=== PATIENT | female | born 1955 | race Caucasian/White ===

== ENCOUNTER 2024-04-29 14:00 | Outpatient (RCR) | payer MEDICARE, SELFPAY ==
[2024-04-22 13:41] VITALS: BP 153/94; PULSE 97; RESP 16; TEMP 35.9; BMI 32.4
--- NOTE | 2024-04-22 17:04 | HP.PCM_ITS ---
History of Present Illness Date of Service: 04/22/24 Chief Complaint: Bilateral buttock pressure wounds History of Wound: Nhi Miranda is a 68 y/o female who presents to the wound center today for evaluation and management of bilateral buttock pressure ulcerations as referred by her PCP. She reports she first noticed these wounds >6 weeks ago, she was having pain in the area. She has been following with her PCP who has been having her cover the wounds with foam border dressing, had her get a foam pad/donut for her chair, and advised her to stand more frequently. The wounds have been improving, but progress has been slow. She has been treated a couple times for associated cellulitis, not currently on any antibiotics. She admits she spends a lot of time sitting her her recliner watching TV/News. She does not have any specific mobility limitations, she is ambulatory without the need for any assistive devices. She has never had wounds like this before. She is diabetic but with very good control, last A1c 6.6. She does not smoke. She does not have any autoimmune disease and takes no immunosuppressive medications. She is not on anticoagulation. She reports that she has been standing every 15 minutes at home. She uses the donut all the time on her chair. She does sleep in a bed. [facility] Home Medications ?Medication ?Instructions ?Recorded ?Last Taken ?Type Abilify 2 mg 07/02/14 Unknown Histor y Ambien 07/02/14 Unknown History Amitriptyline HCl 07/02/14 Unknown History Cymbalta 60 mg PO 07/02/14 Unknown Hi story Lexapro 07/02/14 Unknown History Simvastatin 07/02/14 Unknown History aripiprazole 2 mg tablet mg 04/22/24 Unknown History atorvastatin 40 mg tablet mg DAILY 04/22/24 Unknown Hi story calcium 500 mg (as 1 tab PO BID 04/22/24 Unknow n History carbonate)-vitamin D3 5 mcg (200 unit) tablet (Oyster [place] Calcium-Vitamin D3) clonazepam 0.5 mg tablet mg 04/22/24 Unknown History duloxetine 60 mg capsule,delayed mg PO DAILY 04/22/24 Unknown History release ergocalciferol (vitamin D2) 1,250 1,250 mcg PO QWEEK 0 04/22/24 Unknown History mcg (50,000 unit) capsule escitalopram oxalate 20 mg tablet mg DAILY 04/22/24 Un known History fluconazole 150 mg tablet 150 mg PO X1 04/22/24 Unknow n History gabapentin 600 mg tablet mg 04/22/24 Unknown History lansoprazole 30 mg capsule,delayed mg DAILY 04/22/24 U nknown History release levothyroxine 50 mcg tablet mcg DAILY 04/22/24 Unknown History (Synthroid) metformin 500 mg tablet mg 04/22/24 Unknown History tizanidine 2 mg tablet mg 3XD 04/22/24 Unknown Hist ory topiramate 50 mg tablet mg DAILY 04/22/24 Unknown Hi story zolpidem 10 mg tablet mg 04/22/24 Unknown History Allergy/AdvReac Type Severity Reaction Status Date / Time nitrofurantoin Allergy Swelling Verified 04/22/24 13:41 macrocrystalline (From Macrodantin) tetracycline Allergy Swelling Verified 04/22/24 13:41 Social History Smoking Status: Never smoker Vital Signs Vital Signs Vital Signs: 04/22/24 13:41 Temperature 96.7 F L Temperature Source Temporal Pulse Rate 97 Respiratory Rate 16 Blood Pressure 153/94 H Blood Pressure Mean 113 Blood Pressure Source Monitor Blood Pressure Position Sitting Blood Pressure Location Left Arm Oxygen Delivery Method Room Air Weight Weight: 189 lb Body Mass Index (BMI) 32.4 Physical Exam Const alert, oriented x3, no apparent distress and healthy appearing General Appearance: cooperative and comfortable HEENT normocephalic, hearing grossly normal bilaterally, external ears normal and external nose normal Eyes General Eye: normal appearance of both eyes Neck General: normal visual inspection and trachea midline Resp normal respiratory effort Effort and Inspection: able to speak in complete sentences; Negative for respiratory distress, labored, grunting or audible wheezes Cardio regular rate and regular rhythm Extremity no clubbing, cyanosis or edema Skin Wounds: wounds noted Wound Narrative: Healed wound to the L buttock. R buttock with stage 2 pressure ulceration, pink and well-bleeding wound base. There is no surrounding erythema, focal edema, fluctuance, excess warmth. No significant drainage. Neuro oriented x3, moves all extremities and no focal motor deficits Speech: speech normal Psych mental status grossly normal Appearance: grossly normal Attitude: calm and engaged Activity / Motor Behavior: appropriate eye contact Speech: normal speech Debridement Note Debridement Note Wound debrided: R buttock ulceration Laterality: Right Type of Debridement: Excisional debridement Anesthesia Used: 4% Lidocaine Solution Depth: Down to and including healthy tissue (dermis/epidermis) Percentage of wound debrided: 100 Instrument Used: 5mm curette Tissue Removed: slough, crust/scab Severity: Limited To Skin Breakdown Amount of bleeding with debridement: Mild Bleeding Controlled with: Pressure Patient tolerated procedure: Patient tolerated procedure well Post-Debridement Measurements and Additional Note: Post-Debridement Measurements/Treatment MARGIE - Nurse 1 - General Ulcer Assessment Start: 04/22/24 13:34 Freq: Status: Active Protocol: FARA Activity Type Activity Date Activity User E-sign Co-sign Detail Recorded Client Recorded Date Recorded By Document 04/22/24 13:41 KW [id number] 04/22/24 13:55 KW 04/22/24 13:41 MARGIE - Today's Visit Information Type of service Initial Visit Arrival Mode Ambulatory Accompanied by - derek Patient Identification Verified (Name & Yes ) Height and Weight Height 5 ft 4 in Weight 189 lb Weight in Pounds 189.0 lbs Weight Measurement Method Estimated by Patient Body Mass Index (BMI) 32.4 BMI Classification Obese Vital Signs Temperature (97.8 F-99.1 F) 96.7 F L Temperature Source Temporal Pulse Rate (60-100) 97 Pulse Location Monitor Respiratory Rate (12-18) 16 Respiratory rate source Observation Oxygen Delivery Method Room Air Blood Pressure (90/60-120/80) 153/94 H Blood Pressure Mean 113 Source Monitor Position Sitting Blood Pressure Location Left Arm History Since Last Visit- (Skip if this is Patient's initial visit) Left Footwear Regular Shoe Right Footwear Regular Shoe Pain Scale: 0-10 Numeric Is Patient Pain Free? Yes Communication Assessment Preferred language Luxembourgish Dye Colorist Dyer Required No Able to Read Yes Able to Write Yes Communication Tools None Caregiver Communication Skills No Impairment Impairment Right Hearing Abillity Normal Left Hearing Abillity Normal Visual Assistive Devices Glasses Teaching Assessment Preferences Verbal,Written, Demonstration Barriers to Learning None Readiness To Learn Excellent Willingness to Engage in Self Management High Activies Readiness to Engage in Self Management High Activities Anxiety Level Calm Cooperation Cooperative Perception Coherent Interest in Health Problem Asks Questions Education Importance Acknowledges Need Does Patient Smoke tobacco or other No substances Smoking Status Never smoker Is Patient Diabetic Yes Functional Assessment Recent Decline in Ability to Perform Denies Any Declines Culture/Yazidi/Industrial Production Manager Cultural/Yazidi Needs that may affect No Treatment Plan Would you allow our hospital finance associate to No meet you for the purpose of spiritual/ emotional support? Industrial Production Manager to contact place of yazidi No WC - Nurse 1 - General Ulcer Measurement Start: 04/22/24 13:34 Freq: Status: Active Protocol: Activity Type Activity Date Activity User E-sign Co-sign Detail Recorded Client Recorded Date Recorded By Document 04/22/24 13:41 KW [id number] 04/22/24 13:55 KW 04/22/24 13:41 Wound Center Nurse 1 #1 LT BUTTOCK -Current Size (cm) - Length 0.1 -Current Size (cm) - Width 0.1 -Current Size (cm) - Depth 0 -Total Square Cm 0.01 -Date of Last Picture (Recall this 04/22/24 field) -Exudate Amt None Present -Granulation Amt Large (67-100%) -Granulation Quality [place] -Texture (Santa-wound Skin Appearance) Assessed -Moisture (Santa-wound Skin Appearance) Assessed -Color (Santa-wound Skin Appearance) Assessed -Temperature (Santa-wound Skin No Abnormality Appearance) (Pt Warm) -Tenderness on Palpation (Santa-wound No Skin Appearance) -Ulcer Cleansing Rinsed/ Irrigated with Saline -Foul Odor after Cleansing No #2 RT BUTTOCK -Current Size (cm) - Length 1.2 -Current Size (cm) - Width 0.4 -Current Size (cm) - Depth 0.1 -Total Square Cm 0.48 -Date of Last Picture (Recall this 04/22/24 field) -Exudate Amt Small -Exudate Type Serosanguineous -Wound Margin Distinct, Outline Attached -Granulation Amt Large (67-100%) -Granulation Quality [place] -Necrosis Amt Medium (34-66%) -Necrotic Tissue Type Eschar -Texture (Santa-wound Skin Appearance) Assessed -Moisture (Santa-wound Skin Appearance) Assessed -Color (Santa-wound Skin Appearance) Assessed -Temperature (Santa-wound Skin No Abnormality Appearance) (Pt Warm) -Tenderness on Palpation (Santa-wound No Skin Appearance) -Ulcer Cleansing Rinsed/ Irrigated with Saline -Foul Odor after Cleansing No -Anesthetic Used 5% Lidocaine Gel WC - Nurse 2 - General Ulcer CM Notes Start: 04/22/24 13:34 Freq: Status: Active Protocol: Activity Type Activity Date Activity User E-sign Co-sign Detail Recorded Client Recorded Date Recorded By Document 04/22/24 14:10 GM [id number] 04/22/24 14:20 04/22/24 14:10 Wound Center Nurse 2 #1 LT BUTTOCK -Time 14:10 -Correct Patient Yes -Correct Side, Site, Position Yes -Correct Procedure No -Procedure Performed No -Tunneling No -Undermining/Tunneling No -Circular Undermining No -Wound/Ulcer Outcome Healed- Epithelialized -Ulcer Cleansing Not Cleansed -Foul Odor after Cleansing No -Bioengineered Tissue No -Bleeding Controlled with NA #2 RT BUTTOCK -Time 14:10 -Correct Patient Yes -Correct Side, Site, Position Yes -Correct Procedure Yes -Procedure Performed Yes -Type of Procedure Debridement -Clinical Debridement Subcutaneous -Tissue Removed Subcutaneous -Tunneling No -Undermining/Tunneling No -Circular Undermining No -Wound/Ulcer Outcome Not Healed -Ulcer Cleansing Rinsed/ Irrigated with Saline -Foul Odor after Cleansing No -Bioengineered Tissue No -Bleeding Controlled with Pressure -Treatment Response Procedure Tolerated Well -Debridement - Subq, 1st 20sq cm Yes Pain Scale: 0-10 Numeric Is Patient Pain Free? Yes - Nurse 3 - General Ulcer D/C NN Start: 04/22/24 13:34 Freq: Status: Active Protocol: Activity Type Activity Date Activity User E-sign Co-sign Detail Recorded Client Recorded Date Recorded By Document 04/22/24 14:24 [facility] [id number] 04/22/24 14:25 [facility] 04/22/24 14:24 Wound Care Center Nurse 3 #2 RT BUTTOCK -Ulcer Cleansing Rinsed/ Irrigated with Saline -Foul Odor after Cleansing No -Primary Dressing Applied Promogran [place] Matter, Silicone Border Foam 4x4 -Promogran [place] Matter 1 -Silicone Border Foam 4x4 2 Pain Scale: 0-10 Numeric Is Patient Pain Free? Yes WC - Visit Discharge Discharge Condition Stable Ambulatory Status Ambulatory Transportation Private Auto Accompanied by Charges/Coding Visit Charges Office Visits / Consults: [id number] OV L3 New 30min Procedures Integumentary [id number]: [id number] Rosy subq tissue 20 sq cm/< (dermis/epidermis debridement) Assessment/Plan Assessment/Plan (1) Stage II pressure ulcer of right buttock: CODE(S): L89.312 - Pressure ulcer of right buttock, stage 2 PLAN: Plan My exam revealed healed L buttock ulceration, but persistent stage 2 pressure ulcer of the R buttock with significant overlying scab/slough. Debridement was performed and she tolerated this well. For wound care: (1) Cleanse the area with antibacterial soap and water, pat to dry (2) Apply lightly-moistened [place] to the wound base (3) Cover with foam- border dressing such as [place]-SAP (4) Change once daily or more often as needed if dressing becomes soaked or soiled. I encourage continued offloading measures including changing position/standing up at least every half hour and continued to use extra foam padding/donut in her usual chair. No signs/symptoms of infection on exam today. She will return in 1 week.
--- NOTE | 2024-04-23 12:35 | WC ---
PHOTO 04/22/24 Left Buttock - Initial
--- NOTE | 2024-04-23 12:36 | WC ---
PHOTO 04/22/24 Right Buttock
[2024-04-29 13:45] VITALS: BP 144/75; PULSE 87; RESP 18; TEMP 36.3; BMI 32.4
--- NOTE | 2024-04-29 18:14 | PN.PCM_ITS ---
History of Present Illness Date of Service: 04/29/24 Chief Complaint: Bilateral buttock pressure wounds History of Wound: Nhi Miranda is a 68 y/o female who presents to the wound center today for evaluation and management of bilateral buttock pressure ulcerations as referred by her PCP. She reports she first noticed these wounds >6 weeks ago, she was having pain in the area. She has been following with her PCP who has been having her cover the wounds with foam border dressing, had her get a foam pad/donut for her chair, and advised her to stand more frequently. The wounds have been improving, but progress has been slow. She has been treated a couple times for associated cellulitis, not currently on any antibiotics. She admits she spends a lot of time sitting her her recliner watching TV/News. She does not have any specific mobility limitations, she is ambulatory without the need for any assistive devices. She has never had wounds like this before. She is diabetic but with very good control, last A1c 6.6. She does not smoke. She does not have any autoimmune disease and takes no immunosuppressive medications. She is not on anticoagulation. She reports that she has been standing every 15 minutes at home. She uses the donut all the time on her chair. She does sleep in a bed. Subjective Subjective Nhi is doing well this week. They have been doing well with dressing changes, her pain continue to improve. She has been diligent in offloading measures. Objective Data Objective Data Vital Signs: Vital Signs Temp Pulse Resp BP O2 Del Method 97.4 F L 87 18 144/75 H Room Air 04/29/24 13:45 04/29/24 13:45 04/29/24 13:45 04/29/24 13:45 04/22/24 13:41 Oxygen Delivery Method Room Air Weight: 189 lb Body Mass Index (BMI) 32.4 Charges/Coding Procedures Integumentary 111xxx-113xx: 03599 Rosy subq tissue 20 sq cm/< (dermis/epidermis debridement) Physical Exam Const alert, oriented x3, no apparent distress and healthy appearing General Appearance: cooperative and comfortable HEENT normocephalic, hearing grossly normal bilaterally, external ears normal and external nose normal Eyes General Eye: normal appearance of both eyes Neck General: normal visual inspection and trachea midline Resp normal respiratory effort Effort and Inspection: able to speak in complete sentences; Negative for respiratory distress, labored, grunting or audible wheezes Cardio regular rate and regular rhythm Extremity no clubbing, cyanosis or edema Skin Wounds: wounds noted Wound Narrative: Healed wound to the L buttock. R buttock with stage 2 pressure ulceration, pink and well-bleeding wound base. There is no surrounding erythema, focal edema, fluctuance, excess warmth. No significant drainage. Neuro oriented x3, moves all extremities and no focal motor deficits Speech: speech normal Psych mental status grossly normal Appearance: grossly normal Attitude: calm and engaged Activity / Motor Behavior: appropriate eye contact Speech: normal speech Debridement Note Debridement Note Post-Debridement Measurements and Additional Note: Post-Debridement Measurements/Treatment - Nurse 1 - General Ulcer Assessment Start: 04/22/24 13:34 Freq: Status: Active Protocol: FARA Activity Type Activity Date Activity User E-sign Co-sign Detail Recorded Client Recorded Date Recorded By Document 04/22/24 13:41 KW [id number] 04/22/24 13:55 KW Document 04/29/24 13:45 DL [id number] 04/29/24 13:52 DL 04/22/24 04/29/24 13:41 13:45 - Today's Visit Information Type of service Initial Visit Follow-up Visit (Physician/FILAMENT WOUND PARTS FABRICATOR ) Arrival Mode Ambulatory Ambulatory Transfer Assistance None Accompanied by - derek Patient Identification Verified (Name & Yes Yes ) Patient Requires Transmission-Based No Precautions Height and Weight Height 5 ft 4 in Weight 189 lb Weight in Pounds 189.0 lbs Weight Measurement Method Estimated by Patient Body Mass Index (BMI) 32.4 32.4 BMI Classification Obese Obese Vital Signs Temperature (97.8 F-99.1 F) 96.7 F L 97.4 F L Temperature Source Temporal Temporal Pulse Rate (60-100) 97 87 Pulse Location Monitor Respiratory Rate (12-18) 16 18 Respiratory rate source Observation Observation Oxygen Delivery Method Room Air Blood Pressure (90/60-120/80) 153/94 H 144/75 H Blood Pressure Mean (mm Hg) 113 98 Source Monitor Monitor Position Sitting Blood Pressure Location Left Arm History Since Last Visit- (Skip if this is Patient's initial visit) Have you changed medications since your No last visit? Any new allergies or adverse reactions No Had a fall/change in ADL's that may No increase risk of falls Signs or symptoms of abuse and/or No neglect since last visit Have you been in the hospital since your No last visit? Has dressing in place as prescribed Yes Has compression in place as prescribed N/A Has offloadiing in place as prescribed Yes Experienced any changes in pain level or No management Left Footwear Regular Shoe Right Footwear Regular Shoe Pain Scale: 0-10 Numeric Is Patient Pain Free? Yes Yes Communication Assessment Preferred language [employer] Magistrate Required No Able to Read Yes Able to Write Yes Communication Tools None Caregiver Communication Skills No Impairment Impairment Right Hearing Abillity Normal Left Hearing Abillity Normal Visual Assistive Devices Glasses Teaching Assessment Preferences Verbal,Written, Demonstration Barriers to Learning None Readiness To Learn Excellent Willingness to Engage in Self Management High Activies Readiness to Engage in Self Management High Activities Anxiety Level Calm Cooperation Cooperative Perception Coherent Interest in Health Problem Asks Questions Education Importance Acknowledges Need Does Patient Smoke tobacco or other No substances Smoking Status Never smoker Is Patient Diabetic Yes Functional Assessment Recent Decline in Ability to Perform Denies Any Declines Culture/Yarsani/Supervisor Cigarette Making Department Cultural/Yarsani Needs that may affect No Treatment Plan Would you allow our hospital environmental protection specialist to No meet you for the purpose of spiritual/ emotional support? Supervisor Cigarette Making Department to contact place of evangelical No WC - Nurse 1 - General Ulcer Measurement Start: 04/22/24 13:34 Freq: Status: Active Protocol: Activity Type Activity Date Activity User E-sign Co-sign Detail Recorded Client Recorded Date Recorded By Document 04/22/24 13:41 KW [id number] 04/22/24 13:55 KW Document 04/29/24 13:45 DL [id number] 04/29/24 13:52 DL 04/22/24 04/29/24 13:41 13:45 Wound Center Nurse 1 #1 LT BUTTOCK -Current Size (cm) - Length 0.1 -Current Size (cm) - Width 0.1 -Current Size (cm) - Depth 0 -Total Square Cm 0.01 -Date of Last Picture (Recall this 04/22/24 field) -Exudate Amt None Present -Granulation Amt Large (67-100%) -Granulation Quality Sparkman -Texture (Asnta-wound Skin Appearance) Assessed -Moisture (Santa-wound Skin Appearance) Assessed -Color (Santa-wound Skin Appearance) Assessed -Temperature (Santa-wound Skin No Abnormality Appearance) (Pt Warm) -Tenderness on Palpation (Santa-wound No Skin Appearance) -Ulcer Cleansing Rinsed/ Irrigated with Saline -Foul Odor after Cleansing No #2 RT BUTTOCK -Current Size (cm) - Length 1.2 0.1 -Current Size (cm) - Width 0.4 0.1 -Current Size (cm) - Depth 0.1 0.1 -Total Square Cm 0.48 0.01 -Date of Last Picture (Recall this 04/22/24 field) -Photo Taken Yes -Exudate Amt Small None Present -Exudate Type Serosanguineous -Wound Margin Distinct, Distinct, Outline Outline Attached Attached -Granulation Amt Large (67-100%) Large (67-100%) -Granulation Quality Sparkman Pale,Sparkman -Necrosis Amt Medium (34-66%) None Present (0 %) -Necrotic Tissue Type Eschar -Structure Exposed N/A -Texture (Santa-wound Skin Appearance) Assessed Scarring -Moisture (Santa-wound Skin Appearance) Assessed Dry/Scaly -Color (Santa-wound Skin Appearance) Assessed No Abnormality -Temperature (Santa-wound Skin No Abnormality No Abnormality Appearance) (Pt Warm) (Pt Warm) -Tenderness on Palpation (Santa-wound No Skin Appearance) -Ulcer Cleansing Rinsed/ Rinsed/ Irrigated with Irrigated with Saline Saline -Foul Odor after Cleansing No -Anesthetic Used 5% Lidocaine 5% Lidocaine Gel Gel WC - Nurse 2 - General Ulcer CM Notes Start: 04/22/24 13:34 Freq: Status: Active Protocol: Activity Type Activity Date Activity User E-sign Co-sign Detail Recorded Client Recorded Date Recorded By Document 04/22/24 14:10 GM [id number] 04/22/24 14:20 GM Edit Result 04/22/24 14:10 GM (1) [id number] 04/23/24 07:47 GM Document 04/29/24 14:46 GM [id number] 04/29/24 14:47 GM (1) #2 RT BUTTOCK - Post Debridement (cm) - Length => 2.0 - Post Debridement (cm) - Width => 0.5 - Post Debridement (cm) - Depth => 0.1 - Total Square (Post) (cm) => 1.00 - Area of Debridement (cm) - Length => 2.0 - Area of Debridement (cm) - Width => 0.5 - Total Square (Area) (cm) => 1.00 04/22/24 04/29/24 14:10 14:46 Wound Center Nurse 2 #1 LT BUTTOCK -Time 14:10 -Correct Patient Yes -Correct Side, Site, Position Yes -Correct Procedure No -Procedure Performed No -Tunneling No -Undermining/Tunneling No -Circular Undermining No -Wound/Ulcer Outcome Healed- Epithelialized -Ulcer Cleansing Not Cleansed -Foul Odor after Cleansing No -Bioengineered Tissue No -Bleeding Controlled with NA #2 RT BUTTOCK -Time 14:10 14:46 -Correct Patient Yes Yes -Correct Side, Site, Position Yes Yes -Correct Procedure Yes Yes -Procedure Performed Yes Yes -Type of Procedure Debridement Debridement -Clinical Debridement Subcutaneous Subcutaneous -Tissue Removed Subcutaneous Subcutaneous -Post Debridement (cm) - Length 2.0 1.6 -Post Debridement (cm) - Width 0.5 0.5 -Post Debridement (cm) - Depth 0.1 0.1 -Total Square (Post) (cm) 1.00 0.80 -Area of Debridement (cm) - Length 2.0 1.6 -Area of Debridement (cm) - Width 0.5 0.5 -Total Square (Area) (cm) 1.00 0.80 -Tunneling No No -Undermining/Tunneling No No -Circular Undermining No No -Wound/Ulcer Outcome Not Healed Not Healed -Ulcer Cleansing Rinsed/ Rinsed/ Irrigated with Irrigated with Saline Saline -Foul Odor after Cleansing No No -Bioengineered Tissue No No -Bleeding Controlled with Pressure Pressure -Treatment Response Procedure Procedure Tolerated Well Tolerated Well -Debridement - Subq, 1st 20sq cm Yes Yes Pain Scale: 0-10 Numeric Is Patient Pain Free? Yes Yes - Nurse 3 - General Ulcer D/C NN Start: 04/22/24 13:34 Freq: Status: Active Protocol: Activity Type Activity Date Activity User E-sign Co-sign Detail Recorded Client Recorded Date Recorded By Document 04/22/24 14:24 [facility] [id number] 04/22/24 14:25 BM Document 04/29/24 14:53 [facility] [id number] 04/29/24 14:54 BM 04/22/24 04/29/24 14:24 14:53 Wound Care Center Nurse 3 #2 RT BUTTOCK -Ulcer Cleansing Rinsed/ Rinsed/ Irrigated with Irrigated with Saline Saline -Foul Odor after Cleansing No No -Pieces of Black Foam Inserted 2 1 -Promogran Abiola Matter 1 1 -<Query Deleted From Dictionary> [id number] PRISMAMATT PRISMAMATT [id number] SILICONE SILICONE Treatment Response Procedure Tolerated Well Pain Scale: 0-10 Numeric Is Patient Pain Free? Yes Yes WC - Visit Discharge Discharge Condition Stable Stable Ambulatory Status Ambulatory Ambulatory Transportation Private Auto Private Auto Accompanied by Assessment/Plan Assessment/Plan (1) Stage II pressure ulcer of right buttock: CODE(S): L89.312 - Pressure ulcer of right buttock, stage 2 PLAN: Plan Debridement was performed to the R buttock ulceration and she tolerated this well. For wound care: (1) Cleanse the area with antibacterial soap and water, pat to dry (2) Apply lightly-moistened Abiola to the wound base (3) Cover with foam- border dressing such as [place]-SAP (4) Change once daily or more often as needed if dressing becomes soaked or soiled. I encourage continued offloading measures including changing position/standing up at least every half hour and continued to use extra foam padding/donut in her usual chair. No signs/symptoms of infection on exam today. She will return in 1 week.
--- NOTE | 2024-04-30 09:31 | WC ---
PHOTO 04/29/24 RIGHT BUTTOCKS
== END 2024-04-30 23:59 | disposition home or self-care (01) ==
LOC: WC 14:00
PROVIDERS: PCP Internal Medicine; Referring Provider Internal Medicine; Visit Provider Physician Assistant
DX: L89.312 Pressure ulcer of right buttock, stage 2 (principal); E11.9 Type 2 diabetes mellitus without complications; Z79.84 Long term (current) use of oral hypoglycemic drugs; Z79.890 Hormone replacement therapy; Z79.899 Other long term (current) drug therapy
CPT/HCPCS: 11042; 99203; G0463

== ENCOUNTER 2024-05-20 13:51 | Outpatient (RCR) | payer MEDICARE, SELFPAY ==
[2024-05-01 01:33] VITALS: BP 144/75; PULSE 87; RESP 18; TEMP 36.3; BMI 32.4
[2024-05-20 14:17] VITALS: BP 123/66; PULSE 78; RESP 16; BMI 32.4
--- NOTE | 2024-05-20 16:01 | PN.PCM_ITS ---
History of Present Illness Date of Service: 05/20/24 Chief Complaint: Bilateral buttock pressure wounds History of Wound: Nhi Miranda is a 68 y/o female who presents to the wound center today for evaluation and management of bilateral buttock pressure ulcerations as referred by her PCP. She reports she first noticed these wounds >6 weeks ago, she was having pain in the area. She has been following with her PCP who has been having her cover the wounds with foam border dressing, had her get a foam pad/donut for her chair, and advised her to stand more frequently. The wounds have been improving, but progress has been slow. She has been treated a couple times for associated cellulitis, not currently on any antibiotics. She admits she spends a lot of time sitting her her recliner watching TV/News. She does not have any specific mobility limitations, she is ambulatory without the need for any assistive devices. She has never had wounds like this before. She is diabetic but with very good control, last A1c 6.6. She does not smoke. She does not have any autoimmune disease and takes no immunosuppressive medications. She is not on anticoagulation. She reports that she has been standing every 15 minutes at home. She uses the donut all the time on her chair. She does sleep in a bed. Subjective Subjective Nhi is doing well today. The area on the R buttock seems to be improving, maybe a new area of breakdown on the L buttock. Her does her dressing changes and also notes that between her buttocks she has a red rash and wonders what this could be; she denies any pain, itching in this area. He has not notic ed it spreading. No N/V, F/C. Objective Data Objective Data Vital Signs: Vital Signs Temp Pulse Resp BP O2 Del Method 97.4 F L 78 16 123/66 H Room Air 05/01/24 01:33 05/20/24 14:17 05/20/24 14:17 05/20/24 14:17 05/20/24 14:17 Oxygen Delivery Method Room Air Weight: 189 lb Body Mass Index (BMI) 32.4 Charges/Coding Procedures Integumentary 111xxx-113xx: 95331 Rosy subq tissue 20 sq cm/< (dermis/epidermis debridement) Physical Exam Const alert, oriented x3, no apparent distress and healthy appearing General Appearance: cooperative and comfortable HEENT normocephalic, hearing grossly normal bilaterally, external ears normal and external nose normal Eyes General Eye: normal appearance of both eyes Neck General: normal visual inspection and trachea midline Resp normal respiratory effort Effort and Inspection: able to speak in complete sentences; Negative for respiratory distress, labored, grunting or audible wheezes Cardio regular rate and regular rhythm Extremity no clubbing, cyanosis or edema Skin Wounds: wounds noted Wound Narrative: L buttock with stage I pressure ulceration, pink base, mild slough/adherent dried drainage. There is no surrounding erythema, focal edema, fluctuance, excess warmth. No significant drainage. R buttock with stage I pressure ulceration, pink and well-bleeding wound base. There is no surrounding erythema, focal edema, fluctuance, excess warmth. No significant drainage. Appreciate well demarcated erythematous rash with scaling in the gluteal cleft; without swelling, purulent drainage, crusting Neuro oriented x3, moves all extremities and no focal motor deficits Speech: speech normal Psych mental status grossly normal Appearance: grossly normal Attitude: calm and engaged Activity / Motor Behavior: appropriate eye contact Speech: normal speech Debridement Note Debridement Note Wound debrided: R buttock Laterality: Right Wound Grade/Stage: stage II Type of Debridement: Excisional debridement Anesthesia Used: 5% Lidocaine Gel Depth: Down to and including healthy tissue and - (dermis/epidermis) Percentage of wound debrided: 100 Instrument Used: 3mm curette Tissue Removed: slough, adherent dried drainage Severity: Limited To Skin Breakdown Amount of bleeding with debridement: Mild Bleeding Controlled with: Pressure Patient tolerated procedure: Patient tolerated procedure well Post-Debridement Measurements and Additional Note: Post-Debridement Measurements/Treatment - Nurse 1 - General Ulcer Assessment Start: 05/20/24 14:16 Freq: Status: Active Protocol: [email or web address] Activity Type Activity Date Activity User E-sign Co-sign Detail Recorded Client Recorded Date Recorded By Document 05/20/24 14:17 [id number] 05/20/24 14:23 KW 05/20/24 14:17 - Today's Visit Information 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 service 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 Any new allergies or adverse reactions No Had a fall/change in ADL's that may No increase risk of falls Signs or symptoms of abuse and/or No neglect since last visit Have you been in the hospital since your No last visit? Has dressing in place as prescribed Yes Has compression in place as prescribed No Has offloadiing in place as prescribed No Experienced any changes in pain level or No management Left Footwear Regular Shoe Right Footwear Regular Shoe Pain Scale: 0-10 Numeric Is Patient Pain Free? Yes - Nurse 1 - General Ulcer Measurement Start: 05/20/24 14:16 Freq: Status: Active Protocol: Activity Type Activity Date Activity User E-sign Co-sign Detail Recorded Client Recorded Date Recorded By Document 05/20/24 14:17 [id number] 05/20/24 14:23 KW 05/20/24 14:17 Wound Center Nurse 1 #2 RT BUTTOCK -Current Size (cm) - Length 0.1 -Current Size (cm) - Width 0.1 -Current Size (cm) - Depth 0 -Total Square Cm 0.01 -Exudate Amt Small -Exudate Type Serosanguineous -Wound Margin Distinct, Outline Attached -Granulation Amt Large (67-100%) -Granulation Quality Red -Texture (Santa-wound Skin Appearance) Assessed -Moisture (Santa-wound Skin Appearance) Assessed, Maceration -Color (Santa-wound Skin Appearance) Assessed -Temperature (Santa-wound Skin No Abnormality Appearance) (Pt Warm) -Tenderness on Palpation (Santa-wound No Skin Appearance) -Ulcer Cleansing Rinsed/ Irrigated with Saline -Foul Odor after Cleansing No -Anesthetic Used 5% Lidocaine Gel WC - Nurse 2 - General Ulcer CM Notes Start: 05/20/24 14:16 Freq: Status: Active Protocol: Activity Type Activity Date Activity User E-sign Co-sign Detail Recorded Client Recorded Date Recorded By Document 05/20/24 14:34 [id number] 05/20/24 14:40 05/20/24 14:34 Wound Center Nurse 2 -Time 14:34 -Correct Patient Yes -Correct Side, Site, Position Yes -Correct Procedure Yes -Procedure Performed Yes -Type of Procedure Debridement -Clinical Debridement Subcutaneous -Tissue Removed Subcutaneous -Post Debridement (cm) - Length 0.5 -Post Debridement (cm) - Width 0.2 -Post Debridement (cm) - Depth 0.1 -Total Square (Post) (cm) 0.10 -Area of Debridement (cm) - Length 0.5 -Area of Debridement (cm) - Width 0.2 -Total Square (Area) (cm) 0.10 -Tunneling No -Undermining/Tunneling No -Circular Undermining No -Wound/Ulcer Outcome Not Healed -Ulcer Cleansing Rinsed/ Irrigated with Saline -Foul Odor after Cleansing No -Bioengineered Tissue No -Bleeding Controlled with Pressure -Treatment Response Procedure Tolerated Well -Debridement - Subq, 1st 20sq cm Yes #1 LT BUTTOCK -Time 14:39 -Correct Patient Yes -Correct Side, Site, Position Yes -Correct Procedure Yes -Procedure Performed Yes -Type of Procedure Debridement -Clinical Debridement Subcutaneous -Tissue Removed Subcutaneous -Post Debridement (cm) - Length 2.0 -Post Debridement (cm) - Width 0.5 -Post Debridement (cm) - Depth 0.1 -Total Square (Post) (cm) 1.00 -Area of Debridement (cm) - Length 2.0 -Area of Debridement (cm) - Width 0.5 -Total Square (Area) (cm) 1.00 -Tunneling No -Undermining/Tunneling No -Circular Undermining No -Wound/Ulcer Outcome Not Healed -Ulcer Cleansing Rinsed/ Irrigated with Saline -Foul Odor after Cleansing No -Bioengineered Tissue No -Bleeding Controlled with Pressure -Treatment Response Procedure Tolerated Well -Offloading No -Debridement - Subq, 1st 20sq cm No Pain Scale: 0-10 Numeric Is Patient Pain Free? Yes WC - Nurse 3 - General Ulcer D/C NN Start: 05/20/24 14:16 Freq: Status: Active Protocol: Activity Type Activity Date Activity User E-sign Co-sign Detail Recorded Client Recorded Date Recorded By Document 05/20/24 14:48 KW [id number] 05/20/24 14:49 KW 05/20/24 14:48 Wound Care Center Nurse 3 #2 RT BUTTOCK -Wound Comment(s) pt refused nurse to dress wounds, rather tend to it at home. #1 LT BUTTOCK -Wound Comment(s) pt states she has plenty of marlon at home and supplies are being ordered. Pain Scale: 0-10 Numeric Is Patient Pain Free? Yes WC - Visit Discharge Discharge Condition Stable Ambulatory Status Ambulatory Transportation Private Auto Accompanied by Medication Reconcilliation completed & No provided to patient/care provider Clinical Summary of Care Provided Yes Additional Wound Wound debrided: L buttock Laterality: Left Wound Grade/Stage: stage II Type of Debridement: Excisional debridement Depth: Down to and including healthy tissue Percentage of wound debrided: 100 Instrument Used: 3mm curette Tissue Removed: slough, adherent dried drainage Severity: Limited To Skin Breakdown Amount of bleeding with debridement: Mild Bleeding Controlled with: Pressure Patient tolerated procedure: Patient tolerated procedure well Assessment/Plan Assessment/Plan (1) Stage II pressure ulcer of right buttock: CODE(S): L89.312 - Pressure ulcer of right buttock, stage 2 (2) Stage II pressure ulcer of left buttock: CODE(S): L89.322 - Pressure ulcer of left buttock, stage 2 (3) Candidal intertrigo: CODE(S): B37.2 - Candidiasis of skin and nail PLAN: Plan Debridement was performed as above and she tolerated it well. For wound care: (1) Cleanse the area with antibacterial soap and water, pat to dry (2) Apply lightly-moistened Marlon to the wound base (3) Cover with foam- border dressing such as [place]-SAP (4) Change once daily or more often as needed if dressing becomes soaked or soiled. The rash in her gluteal cleft is consistent with candidal intertrigo. I have prescribed topical clotrimazole 1% to be applied twice daily x 14 days. I encourage continued offloading measures including changing position/standing up at least every half hour and continued to use extra foam padding/donut in her usual chair. No signs/symptoms of infection on exam today. She will return in 2 weeks.
== END 2024-05-31 23:59 | disposition home or self-care (01) ==
LOC: WC 13:51
PROVIDERS: PCP Internal Medicine; Referring Provider Internal Medicine; Visit Provider Physician Assistant
DX: L89.312 Pressure ulcer of right buttock, stage 2 (principal); L89.322 Pressure ulcer of left buttock, stage 2; E11.9 Type 2 diabetes mellitus without complications; B37.2 Candidiasis of skin and nail; Z79.84 Long term (current) use of oral hypoglycemic drugs; Z79.899 Other long term (current) drug therapy
CPT/HCPCS: 11042

== ENCOUNTER 2024-06-17 14:00 | Outpatient (RCR) | payer MEDICARE, SELFPAY ==
[2024-06-01 00:49] VITALS: BP 123/66; PULSE 78; RESP 16; TEMP 36.3; BMI 32.4
[2024-06-03 14:11] VITALS: BP 137/73; PULSE 98; RESP 16; TEMP 36.3; BMI 32.4
--- NOTE | 2024-06-03 15:04 | PCM.WC.PN ---
History of Present Illness Date of Service: 06/03/24 Chief Complaint: Bilateral buttock pressure wounds History of Wound: Nhi Miranda is a 68 y/o female who presents to the wound center today for evaluation and management of bilateral buttock pressure ulcerations as referred by her PCP. She reports she first noticed these wounds >6 weeks ago, she was having pain in the area. She has been following with her PCP who has been having her cover the wounds with foam border dressing, had her get a foam pad/donut for her chair, and advised her to stand more frequently. The wounds have been improving, but progress has been slow. She has been treated a couple times for associated cellulitis, not currently on any antibiotics. She admits she spends a lot of time sitting her her recliner watching TV/News. She does not have any specific mobility limitations, she is ambulatory without the need for any assistive devices. She has never had wounds like this before. She is diabetic but with very good control, last A1c 6.6. She does not smoke. She does not have any autoimmune disease and takes no immunosuppressive medications. She is not on anticoagulation. She reports that she has been standing every 15 minutes at home. She uses the donut all the time on her chair. She does sleep in a bed. Subjective Subjective Nhi returns today for evaluation of her buttock pressure ulcerations. Her reports the ulceration on her left buttock is worsened in appearance, the one on her right buttock is improved in appearance. She does note more pain/tenderness to the right buttock. Objective Data Objective Data Vital Signs: Vital Signs Temp Pulse Resp BP 97.4 F L 98 16 137/73 H 06/03/24 14:11 06/03/24 14:11 06/03/24 14:11 06/03/24 14:11 Weight: 189 lb Body Mass Index (BMI) 32.4 Charges/Coding Procedures Integumentary [id number]: [id number] Rosy subq tissue 20 sq cm/< (dermis/epidermis debridement) Physical Exam Const alert, oriented x3, no apparent distress and healthy appearing General Appearance: cooperative and comfortable HEENT normocephalic, hearing grossly normal bilaterally, external ears normal and external nose normal Eyes General Eye: normal appearance of both eyes Neck General: normal visual inspection and trachea midline Resp normal respiratory effort Effort and Inspection: able to speak in complete sentences; Negative for respiratory distress, labored, grunting or audible wheezes Cardio regular rate and regular rhythm Extremity no clubbing, cyanosis or edema Skin Wounds: wounds noted Wound Narrative: L buttock with stage I pressure ulceration, pink base, mild slough/adherent dried drainage. There is no surrounding erythema, focal edema, fluctuance, excess warmth. No significant drainage. R buttock with stage I pressure ulceration, pink and well-bleeding wound base. Increased in size. There is some maceration, erythema, warmth; no focal edema/induration/fluctuance. Prior area of rash in the gluteal cleft with resolved erythema, still with some scaling about the edges. Neuro oriented x3, moves all extremities and no focal motor deficits Speech: speech normal Psych mental status grossly normal Appearance: grossly normal Attitude: calm and engaged Activity / Motor Behavior: appropriate eye contact Speech: normal speech Debridement Note Debridement Note Wound debrided: R buttock Laterality: Right Wound Grade/Stage: stage II Type of Debridement: Excisional debridement Anesthesia Used: 5% Lidocaine Gel Depth: Down to and including healthy tissue and - (dermis/epidermis) Percentage of wound debrided: 100 Instrument Used: 3mm curette Tissue Removed: slough, adherent dried drainage Severity: Limited To Skin Breakdown Amount of bleeding with debridement: Mild Bleeding Controlled with: Pressure Patient tolerated procedure: Patient tolerated procedure well Post-Debridement Measurements and Additional Note: Post-Debridement Measurements/Treatment [facility] Nurse 1 - General Ulcer Assessment Start: 06/03/24 14:10 Freq: Status: Active Protocol: .LOWFLORECITA Activity Type Activity Date Activity User E-sign Co-sign Detail Recorded Client Recorded Date Recorded By Document 06/03/24 14:11 [id number] 06/03/24 14:19 DL 06/03/24 14:11 - Today's Visit Information Type of service Follow-up Visit (Physician/[facility] ) Arrival Mode Ambulatory Transfer Assistance None Patient Identification Verified (Name & Yes ) Patient Requires Transmission-Based No Precautions Height and Weight Body Mass Index (BMI) 32.4 BMI Classification Obese Vital Signs Temperature (97.8 F-99.1 F) 97.4 F L Temperature Source Temporal Pulse Rate (60-100) 98 Pulse Location Monitor Respiratory Rate (12-18) 16 Respiratory rate source Observation Blood Pressure (90/60-120/80) 137/73 H Blood Pressure Mean (mm Hg) 94 Source Monitor History Since Last Visit- (Skip if this is Patient's initial visit) Have you changed medications since your No last visit? Any new allergies or adverse reactions No Had a fall/change in ADL's that may No increase risk of falls Signs or symptoms of abuse and/or No neglect since last visit Have you been in the hospital since your No last visit? Has dressing in place as prescribed Yes Has compression in place as prescribed N/A Has offloadiing in place as prescribed Yes Experienced any changes in pain level or No management Pain Scale: 0-10 Numeric Is Patient Pain Free? Yes WC - Nurse 1 - General Ulcer Measurement Start: 06/03/24 14:10 Freq: Status: Active Protocol: Activity Type Activity Date Activity User E-sign Co-sign Detail Recorded Client Recorded Date Recorded By Document 06/03/24 14:11 DL [id number] 06/03/24 14:19 DL 06/03/24 14:11 Wound Center Nurse 1 #2 RT BUTTOCK -Current Size (cm) - Length 0.5 -Current Size (cm) - Width 0.4 -Current Size (cm) - Depth 0.1 -Total Square Cm 0.20 -Photo Taken Yes -Exudate Amt Small -Wound Margin Distinct, Outline Attached -Granulation Amt Small (1-33%) -Granulation Quality Wren -Necrosis Amt None Present (0 %) -Structure Exposed N/A -Texture (Santa-wound Skin Appearance) Scarring -Moisture (Santa-wound Skin Appearance) No Abnormality -Color (Santa-wound Skin Appearance) Erythema -Temperature (Santa-wound Skin No Abnormality Appearance) (Pt Warm) -Tenderness on Palpation (Santa-wound No Skin Appearance) -Ulcer Cleansing Rinsed/ Irrigated with Saline -Anesthetic Used 5% Lidocaine Gel #1 LT BUTTOCK -Current Size (cm) - Length 5.6 -Current Size (cm) - Width 0.5 -Current Size (cm) - Depth 0.1 -Total Square Cm 2.80 -Exudate Amt Small -Exudate Type Serosanguineous -Wound Margin Distinct, Outline Attached -Granulation Amt Medium (34-66%) -Granulation Quality Wren,Red -Necrosis Amt Medium (34-66%) -Necrotic Tissue Type Adherent Slough -Structure Exposed N/A -Texture (Santa-wound Skin Appearance) Scarring -Moisture (Santa-wound Skin Appearance) Maceration -Color (Santa-wound Skin Appearance) Erythema -Temperature (Santa-wound Skin No Abnormality Appearance) (Pt Warm) -Tenderness on Palpation (Santa-wound No Skin Appearance) -Ulcer Cleansing Rinsed/ Irrigated with Saline -Foul Odor after Cleansing No -Anesthetic Used 5% Lidocaine Gel MARGIE - Nurse 2 - General Ulcer CM Notes Start: 06/03/24 14:10 Freq: Status: Active Protocol: Activity Type Activity Date Activity User E-sign Co-sign Detail Recorded Client Recorded Date Recorded By Document 06/03/24 14:39 [id number] 06/03/24 14:44 06/03/24 14:39 Wound Center Nurse 2 #2 RT BUTTOCK -Time 14:39 -Correct Patient Yes -Correct Side, Site, Position Yes -Correct Procedure No -Procedure Performed No -Post Debridement (cm) - Length 0.3 -Post Debridement (cm) - Width 0.3 -Post Debridement (cm) - Depth 0.1 -Total Square (Post) (cm) 0.09 -Tunneling No -Undermining/Tunneling No -Circular Undermining No -Wound/Ulcer Outcome Not Healed -Ulcer Cleansing Rinsed/ Irrigated with Saline -Foul Odor after Cleansing No -Bioengineered Tissue No -Bleeding Controlled with NA -Offloading No #1 LT BUTTOCK -Time 14:40 -Correct Patient Yes -Correct Side, Site, Position Yes -Correct Procedure Yes -Procedure Performed Yes -Type of Procedure Debridement -Clinical Debridement Subcutaneous -Tissue Removed Subcutaneous -Post Debridement (cm) - Length 3.5 -Post Debridement (cm) - Width 1.0 -Post Debridement (cm) - Depth 0.1 -Total Square (Post) (cm) 3.50 -Area of Debridement (cm) - Length 3.5 -Area of Debridement (cm) - Width 1.0 -Total Square (Area) (cm) 3.50 -Tunneling No -Undermining/Tunneling No -Circular Undermining No -Wound/Ulcer Outcome Not Healed -Ulcer Cleansing Rinsed/ Irrigated with Saline -Foul Odor after Cleansing No -Bioengineered Tissue No -Bleeding Controlled with Pressure -Treatment Response Procedure Tolerated Well -Offloading No -Debridement - Subq, 1st 20sq cm Yes Pain Scale: 0-10 Numeric Is Patient Pain Free? Yes - Nurse 3 - General Ulcer D/C NN Start: 06/03/24 14:10 Freq: Status: Active Protocol: Activity Type Activity Date Activity User E-sign Co-sign Detail Recorded Client Recorded Date Recorded By Document 06/03/24 14:54 [facility] [id number] 06/03/24 14:55 [facility] 06/03/24 14:54 Wound Care Center Nurse 3 #2 RT BUTTOCK -Ulcer Cleansing Rinsed/ Irrigated with Saline -Foul Odor after Cleansing No -Primary Dressing Applied Promogran Abiola Matter, Silicone Border Foam 4x4 -Promogran Abiola Matter 1 -Silicone Border Foam 4x4 1 #1 LT BUTTOCK -Ulcer Cleansing Rinsed/ Irrigated with Saline -Foul Odor after Cleansing No -Primary Dressing Applied Promogran Abiola Matter, Silicone Border Foam 4x4 -Promogran Abiola Matter 0 -Silicone Border Foam 4x4 1 Treatment Response Procedure Tolerated Well Pain Scale: 0-10 Numeric Is Patient Pain Free? Yes WC - Visit Discharge Discharge Condition Stable Ambulatory Status Ambulatory Transportation Private Auto Assessment/Plan Assessment/Plan (1) Stage II pressure ulcer of right buttock: CODE(S): L89.312 - Pressure ulcer of right buttock, stage 2 (2) Stage II pressure ulcer of left buttock: CODE(S): L89.322 - Pressure ulcer of left buttock, stage 2 (3) Candidal intertrigo: CODE(S): B37.2 - Candidiasis of skin and nail PLAN: Plan Debridement was performed as above and she tolerated it well. Concerned for infection based on exam and patient's report of increased pain. Obtained cultures from the R buttock ulceration. Will empirically prescribe Bactrim and Keflex x 10 days; will adjust as needed per C&S results. For wound care: (1) Cleanse the area with antibacterial soap and water, pat to dry (2) Apply lightly-moistened Abiola to the wound base (3) Cover with foam-border dressing such as Kitzmiller-SAP (4) Change once daily or more often as needed if dressing becomes soaked or soiled. The rash in her gluteal cleft is consistent with candidal intertrigo.This has improved with application topical clotrimazole 1% twice daily, continue for another 1-2 weeks. I encourage continued offloading measures including changing position/standing up at least every half hour and continued to use extra foam padding/donut in her usual chair. No signs/symptoms of infection on exam today. She will return in 1 week.
[2024-06-10 13:59] VITALS: BP 114/61; PULSE 84; RESP 16; BMI 32.4
--- NOTE | 2024-06-10 15:28 | PN.PCM_ITS ---
History of Present Illness Date of Service: 06/10/24 Chief Complaint: Bilateral buttock pressure wounds History of Wound: Nhi Miranda is a 68 y/o female who presents to the wound center today for evaluation and management of bilateral buttock pressure ulcerations as referred by her PCP. She reports she first noticed these wounds >6 weeks ago, she was having pain in the area. She has been following with her PCP who has been having her cover the wounds with foam border dressing, had her get a foam pad/donut for her chair, and advised her to stand more frequently. The wounds have been improving, but progress has been slow. She has been treated a couple times for associated cellulitis, not currently on any antibiotics. She admits she spends a lot of time sitting her her recliner watching TV/News. She does not have any specific mobility limitations, she is ambulatory without the need for any assistive devices. She has never had wounds like this before. She is diabetic but with very good control, last A1c 6.6. She does not smoke. She does not have any autoimmune disease and takes no immunosuppressive medications. She is not on anticoagulation. She reports that she has been standing every 15 minutes at home. She uses the donut all the time on her chair. She does sleep in a bed. Subjective Subjective Nhi started Bactrim and Keflex which I had prescribed empirically last week and has been tolerating these well. Her cultures grew Proteus, enterobacter, and enterococcus faecalis; the Bactrim and Keflex covered the Proteus and enterobacter. I additionally prescribed topical gentamicin to cover the enterococcus faecalis. She did pick this up and has been applying this. In general, her feels the area is looking much less red and to her it has been much less painful. Objective Data Objective Data Vital Signs: Vital Signs Temp Pulse Resp BP O2 Del Method 97.4 F L 84 16 114/61 Room Air 06/03/24 14:11 06/10/24 13:59 06/10/24 13:59 06/10/24 13:59 06/10/24 13:59 Oxygen Delivery Method Room Air Weight: 189 lb Body Mass Index (BMI) 32.4 Lab / Micro Data Micro: Microbiology 06/03/24 14:42 Wound - Buttock Gram Stain - Final 06/03/24 14:42 Wound - Buttock Wound Culture - Final Proteus mirabilis Enterobacter cloacae complex Enterococcus faecalis 06/03/24 14:42 Wound - Buttock Anaerobic Culture - Final No anaerobic bacteria isolated. Charges/Coding Procedures Integumentary 111xxx-113xx: 21316 Rosy subq tissue 20 sq cm/< (dermis/epidermis debridement) Physical Exam Const alert, oriented x3, no apparent distress and healthy appearing General Appearance: cooperative and comfortable HEENT normocephalic, hearing grossly normal bilaterally, external ears normal and external nose normal Eyes General Eye: normal appearance of both eyes Neck General: normal visual inspection and trachea midline Resp normal respiratory effort Effort and Inspection: able to speak in complete sentences; Negative for r espiratory distress, labored, grunting or audible wheezes Cardio regular rate and regular rhythm Extremity no clubbing, cyanosis or edema Skin Wounds: wounds noted Wound Narrative: L buttock with stage I pressure ulceration, pink base, mild slough/adherent dried drainage. Enlarged, but with no surrounding erythema, focal edema, fluctuance, excess warmth. No significant drainage. R buttock stage I pressure ulceration healed at this time. Prior area of rash in the gluteal cleft with resolved erythema, still with some scaling about the edges. Neuro oriented x3, moves all extremities and no focal motor deficits Speech: speech normal Psych mental status grossly normal Appearance: grossly normal Attitude: calm and engaged Activity / Motor Behavior: appropriate eye contact Speech: normal speech Debridement Note Debridement Note Wound debrided: L buttock Laterality: Right Wound Grade/Stage: stage II Type of Debridement: Excisional debridement Anesthesia Used: 5% Lidocaine Gel Depth: Down to and including healthy tissue and - (dermis/epidermis) Percentage of wound debrided: 100 Instrument Used: 3mm curette Tissue Removed: slough, adherent dried drainage Severity: Limited To Skin Breakdown Amount of bleeding with debridement: Mild Bleeding Controlled with: Pressure Patient tolerated procedure: Patient tolerated procedure well Post-Debridement Measurements and Additional Note: Post-Debridement Measurements/Treatment WC - Nurse 1 - General Ulcer Assessment Start: 06/03/24 14:10 Freq: Status: Active Protocol: FARA Activity Type Activity Date Activity User E-sign Co-sign Detail Recorded Client Recorded Date Recorded By Document 06/03/24 14:11 DL [id number] 06/03/24 14:19 DL Document 06/10/24 13:59 KW [id number] 06/10/24 14:06 KW 06/03/24 06/10/24 14:11 13:59 WC - Today's Visit Information Type of service Follow-up Visit Follow-up Visit (Physician/FIRE EQUIPMENT INSPECTOR (Physician/FIRE EQUIPMENT INSPECTOR ) ) Arrival Mode Ambulatory Ambulatory Transfer Assistance None Accompanied by Patient Identification Verified (Name & Yes Yes ) Patient Requires Transmission-Based No Precautions Height and Weight Body Mass Index (BMI) 32.4 32.4 BMI Classification Obese Obese Vital Signs Temperature (97.8 F-99.1 F) 97.4 F L Temperature Source Temporal Pulse Rate (60-100) 98 84 Pulse Location Monitor Monitor Respiratory Rate (12-18) 16 16 Respiratory rate source Observation Observation Oxygen Delivery Method Room Air Blood Pressure (90/60-120/80) 137/73 H 114/61 Blood Pressure Mean (mm Hg) 94 78 Source Monitor Monitor Position Right Lateral Blood Pressure Location Left Arm History Since Last Visit- (Skip if this is Patient's initial visit) Have you changed medications since your No No last visit? Any new allergies or adverse reactions No No Had a fall/change in ADL's that may No No increase risk of falls Signs or symptoms of abuse and/or No No neglect since last visit Have you been in the hospital since your No No last visit? Has dressing in place as prescribed Yes Yes Has compression in place as prescribed N/A N/A Has offloadiing in place as prescribed Yes N/A Experienced any changes in pain level or No No management Left Footwear Regular Shoe Right Footwear Regular Shoe Pain Scale: 0-10 Numeric Is Patient Pain Free? Yes Yes WC - Nurse 1 - General Ulcer Measurement Start: 06/03/24 14:10 Freq: Status: Active Protocol: Activity Type Activity Date Activity User E-sign Co-sign Detail Recorded Client Recorded Date Recorded By Document 06/03/24 14:11 DL [id number] 06/03/24 14:19 DL Document 06/10/24 13:59 KW [id number] 06/10/24 14:06 KW 06/03/24 06/10/24 14:11 13:59 Wound Center Nurse 1 #2 RT BUTTOCK -Current Size (cm) - Length 0.5 1 -Current Size (cm) - Width 0.4 0.3 -Current Size (cm) - Depth 0.1 0.1 -Total Square Cm 0.20 0.3 -Photo Taken Yes -Exudate Amt Small Medium -Exudate Type Serosanguineous -Wound Margin Distinct, Distinct, Outline Outline Attached Attached -Granulation Amt Small (1-33%) Medium (34-66%) -Granulation Quality [place] -Necrosis Amt None Present (0 Small (1-33%) %) -Necrotic Tissue Type Adherent Slough -Structure Exposed N/A -Texture (Santa-wound Skin Appearance) Scarring Assessed -Moisture (Santa-wound Skin Appearance) No Abnormality Assessed -Color (Santa-wound Skin Appearance) Erythema Assessed, Erythema -Temperature (Santa-wound Skin No Abnormality No Abnormality Appearance) (Pt Warm) (Pt Warm) -Tenderness on Palpation (Santa-wound No No Skin Appearance) -Ulcer Cleansing Rinsed/ Rinsed/ Irrigated with Irrigated with Saline Saline -Foul Odor after Cleansing No -Anesthetic Used 5% Lidocaine 5% Lidocaine Gel Gel #1 LT BUTTOCK -Current Size (cm) - Length 5.6 4.3 -Current Size (cm) - Width 0.5 1 -Current Size (cm) - Depth 0.1 0.1 -Total Square Cm 2.80 4.3 -Exudate Amt Small Medium -Exudate Type Serosanguineous Serosanguineous -Wound Margin Distinct, Distinct, Outline Outline Attached Attached -Granulation Amt Medium (34-66%) Small (1-33%) -Granulation Quality [place],Red Red -Necrosis Amt Medium (34-66%) Medium (34-66%) -Necrotic Tissue Type Adherent Slough Adherent Slough -Structure Exposed N/A -Texture (Santa-wound Skin Appearance) Scarring Assessed -Moisture (Santa-wound Skin Appearance) Maceration Assessed -Color (Santa-wound Skin Appearance) Erythema Assessed, Erythema -Temperature (Santa-wound Skin No Abnormality No Abnormality Appearance) (Pt Warm) (Pt Warm) -Tenderness on Palpation (Santa-wound No No Skin Appearance) -Ulcer Cleansing Rinsed/ Rinsed/ Irrigated with Irrigated with Saline Saline -Foul Odor after Cleansing No No -Anesthetic Used 5% Lidocaine 5% Lidocaine Gel Gel WC - Nurse 2 - General Ulcer CM Notes Start: 06/03/24 14:10 Freq: Status: Active Protocol: Activity Type Activity Date Activity User E-sign Co-sign Detail Recorded Client Recorded Date Recorded By Document 06/03/24 14:39 GM [id number] 06/03/24 14:44 GM Document 06/10/24 14:23 GM [id number] 06/10/24 14:27 GM Edit Result 06/10/24 14:23 GM (1) [id number] 06/10/24 14:31 GM (1) #1 LT BUTTOCK - Clinical Debridement Subcutaneous => Epidermis / Dermis - Tissue Removed Subcutaneous => Epidermis - Debridement - Open, 1st 20sq cm => Yes - Debridement - Subq, 1st 20sq cm Yes => 06/03/24 06/10/24 14:39 14:23 Wound Center Nurse 2 #2 RT BUTTOCK -Time 14:39 14:24 -Correct Patient Yes Yes -Correct Side, Site, Position Yes Yes -Correct Procedure No No -Procedure Performed No No -Post Debridement (cm) - Length 0.3 -Post Debridement (cm) - Width 0.3 -Post Debridement (cm) - Depth 0.1 -Total Square (Post) (cm) 0.09 -Tunneling No No -Undermining/Tunneling No No -Circular Undermining No No -Wound/Ulcer Outcome Not Healed Healed- Epithelialized -Ulcer Cleansing Rinsed/ Not Cleansed Irrigated with Saline -Foul Odor after Cleansing No No -Bioengineered Tissue No No -Bleeding Controlled with NA NA -Offloading No #1 LT BUTTOCK -Time 14:40 14:26 -Correct Patient Yes Yes -Correct Side, Site, Position Yes Yes -Correct Procedure Yes Yes -Procedure Performed Yes Yes -Type of Procedure Debridement Debridement -Clinical Debridement Subcutaneous Epidermis / Dermis -Tissue Removed Subcutaneous Epidermis -Post Debridement (cm) - Length 3.5 4.1 -Post Debridement (cm) - Width 1.0 1.0 -Post Debridement (cm) - Depth 0.1 0.1 -Total Square (Post) (cm) 3.50 4.10 -Area of Debridement (cm) - Length 3.5 4.1 -Area of Debridement (cm) - Width 1.0 1.0 -Total Square (Area) (cm) 3.50 4.10 -Tunneling No No -Undermining/Tunneling No No -Circular Undermining No No -Wound/Ulcer Outcome Not Healed Not Healed -Ulcer Cleansing Rinsed/ Rinsed/ Irrigated with Irrigated with Saline Saline -Foul Odor after Cleansing No No -Bioengineered Tissue No No -Bleeding Controlled with Pressure Pressure -Treatment Response Procedure Procedure Tolerated Well Tolerated Well -Offloading No No -Debridement - Open, 1st 20sq cm Yes -Debridement - Subq, 1st 20sq cm Yes Pain Scale: 0-10 Numeric Is Patient Pain Free? Yes Yes - Nurse 3 - General Ulcer D/C NN Start: 06/03/24 14:10 Freq: Status: Active Protocol: Activity Type Activity Date Activity User E-sign Co-sign Detail Recorded Client Recorded Date Recorded By Document 06/03/24 14:54 [facility] [id number] 06/03/24 14:55 [facility] 06/03/24 14:54 Wound Care Center Nurse 3 #2 RT BUTTOCK -Ulcer Cleansing Rinsed/ Irrigated with Saline -Foul Odor after Cleansing No -Primary Dressing Applied Promogran [place] Matter, Silicone Border Foam 4x4 -Promogran [place] Matter 1 -Silicone Border Foam 4x4 1 #1 LT BUTTOCK -Ulcer Cleansing Rinsed/ Irrigated with Saline -Foul Odor after Cleansing No -Primary Dressing Applied Promogran [place] Matter, Silicone Border Foam 4x4 -Promogran [place] Matter 0 -Silicone Border Foam 4x4 1 Treatment Response Procedure Tolerated Well Pain Scale: 0-10 Numeric Is Patient Pain Free? Yes - Visit Discharge Discharge Condition Stable Ambulatory Status Ambulatory Transportation Private Auto Assessment/Plan Assessment/Plan (1) Stage II pressure ulcer of right buttock: CODE(S): L89.312 - Pressure ulcer of right buttock, stage 2 (2) Stage II pressure ulcer of left buttock: CODE(S): L89.322 - Pressure ulcer of left buttock, stage 2 (3) Candidal intertrigo: CODE(S): B37.2 - Candidiasis of skin and nail PLAN: Plan Debridement was performed as above and she tolerated it well. She will complete Bactrim and Keflex as prescribed for total 10 day therapy. She will continue topical gentamicin for 2 weeks. For wound care: (1) Cleanse the area with antibacterial soap and water, pat to dry (2) Apply Gentamicin ointment (3) Cover with foam-border dressing such as [place]-SAP or dry gauze dressing (4) Change three times daily or more often as needed if dressing becomes soaked or soiled. The rash in her gluteal cleft is consistent with candidal intertrigo. This has improved with application topical clotrimazole 1% twice daily. I encourage continued offloading measures including changing position/standing up at least every half hour and continued to use extra foam padding/donut in her usual chair. No signs/symptoms of infection on exam today. She will return in 1 week.
[2024-06-17 14:03] VITALS: BP 145/87; PULSE 98; RESP 16; TEMP 36.6; BMI 32.4
--- NOTE | 2024-06-17 15:36 | PCM.WC.PN ---
History of Present Illness Date of Service: 06/17/24 Chief Complaint: Bilateral buttock pressure wounds History of Wound: Nhi Miranda is a 68 y/o female who presents to the wound center today for evaluation and management of bilateral buttock pressure ulcerations as referred by her PCP. She reports she first noticed these wounds >6 weeks ago, she was having pain in the area. She has been following with her PCP who has been having her cover the wounds with foam border dressing, had her get a foam pad/donut for her chair, and advised her to stand more frequently. The wounds have been improving, but progress has been slow. She has been treated a couple times for associated cellulitis, not currently on any antibiotics. She admits she spends a lot of time sitting her her recliner watching TV/News. She does not have any specific mobility limitations, she is ambulatory without the need for any assistive devices. She has never had wounds like this before. She is diabetic but with very good control, last A1c 6.6. She does not smoke. She does not have any autoimmune disease and takes no immunosuppressive medications. She is not on anticoagulation. She reports that she has been standing every 15 minutes at home. She uses the donut all the time on her chair. She does sleep in a bed. Subjective Subjective She reports decreased pain. She has completed oral antibiotics, applying topical gentamicin as instructed. R buttock remains healed. New superficial wound to the sacral/brunilda cleft; L buttock ulceration improving. Objective Data Objective Data Vital Signs: Vital Signs Temp Pulse Resp BP O2 Del Method 97.9 F 98 16 145/87 H Room Air 06/17/24 14:03 06/17/24 14:03 06/17/24 14:03 06/17/24 14:03 06/10/24 13:59 Oxygen Delivery Method Room Air Weight: 189 lb Body Mass Index (BMI) 32.4 Lab / Micro Data Micro: Microbiology 06/03/24 14:42 Wound - Buttock Gram Stain - Final 06/03/24 14:42 Wound - Buttock Wound Culture - Final Proteus mirabilis Enterobacter cloacae complex Enterococcus faecalis 06/03/24 14:42 Wound - Buttock Anaerobic Culture - Final No anaerobic bacteria isolated. Charges/Coding Procedures Integumentary 111xxx-113xx: [id number] Rosy subq tissue 20 sq cm/< (dermis/epidermis debridement) Physical Exam Const alert, oriented x3, no apparent distress and healthy appearing General Appearance: cooperative and comfortable HEENT normocephalic, hearing grossly normal bilaterally, external ears normal and external nose normal Eyes General Eye: normal appearance of both eyes Neck General: normal visual inspection and trachea midline Resp normal respiratory effort Effort and Inspection: able to speak in complete sentences; Negative for respiratory distress, labored, grunting or audible wheezes Cardio regular rate and regular rhythm Extremity no clubbing, cyanosis or edema Skin Wounds: wounds noted Wound Narrative: L buttock with stage II pressure ulceration, pink base, mild slough/adherent dried drainage. Improving in size. No surrounding erythema, focal edema, fluctuance, excess warmth. No significant drainage. R buttock ulceration healed at this time. New stage II pressure ulceration with pink base and mild adherent devitalized tissue to the sacral area just at the brunilda cleft; no surrounding erythema, focal edema, fluctuance, excess warmth. Neuro oriented x3, moves all extremities and no focal motor deficits Speech: speech normal Psych mental status grossly normal Appearance: grossly normal Attitude: calm and engaged Activity / Motor Behavior: appropriate eye contact Speech: normal speech Debridement Note Debridement Note Wound debrided: L buttock Laterality: Right Wound Grade/Stage: stage II Type of Debridement: Excisional debridement Anesthesia Used: 5% Lidocaine Gel Depth: Down to and including healthy tissue and - (dermis/epidermis) Percentage of wound debrided: 100 Instrument Used: 3mm curette Tissue Removed: slough, adherent dried drainage Severity: Limited To Skin Breakdown Amount of bleeding with debridement: Mild Bleeding Controlled with: Pressure Patient tolerated procedure: Patient tolerated procedure well Post-Debridement Measurements and Additional Note: Post-Debridement Measurements/Treatment - Nurse 1 - General Ulcer Assessment Start: 06/03/24 14:10 Freq: Status: Active Protocol: FARA Activity Type Activity Date Activity User E-sign Co-sign Detail Recorded Client Recorded Date Recorded By Document 06/03/24 14:11 DL [id number] 06/03/24 14:19 DL Document 06/10/24 13:59 KW [id number] 06/10/24 14:06 KW Document 06/17/24 14:03 DL [id number] 06/17/24 14:14 DL 06/03/24 06/10/24 06/17/24 14:11 13:59 14:03 - Today's Visit Information Type of service Follow-up Visit Follow-up Visit Follow-up Visit (Physician/VETERINARY MEDICINE TEACHER (Physician/VETERINARY MEDICINE TEACHER (Physician/VETERINARY MEDICINE TEACHER ) ) ) Arrival Mode Ambulatory Ambulatory Ambulatory Transfer Assistance None None Accompanied by Patient Identification Verified (Name & Yes Yes Yes ) Patient Requires Transmission-Based No No Precautions Height and Weight Body Mass Index (BMI) 32.4 32.4 32.4 BMI Classification Obese Obese Obese Vital Signs Temperature (97.8 F-99.1 F) 97.4 F L 97.9 F Temperature Source Temporal Temporal Pulse Rate (60-100) 98 84 98 Pulse Location Monitor Monitor Monitor Respiratory Rate (12-18) 16 16 16 Respiratory rate source Observation Observation Observation Oxygen Delivery Method Room Air Blood Pressure (90/60-120/80) 137/73 H 114/61 145/87 H Blood Pressure Mean (mm Hg) 94 78 106 Source Monitor Monitor Monitor Position Right Lateral Blood Pressure Location Left Arm History Since Last Visit- (Skip if this is Patient's initial visit) Have you changed medications since your No No No last visit? Any new allergies or adverse reactions No No No Had a fall/change in ADL's that may No No No increase risk of falls Signs or symptoms of abuse and/or No No No neglect since last visit Have you been in the hospital since your No No No last visit? Has dressing in place as prescribed Yes Yes Yes Has compression in place as prescribed N/A N/A N/A Has offloadiing in place as prescribed Yes N/A Yes Experienced any changes in pain level or No No No management Left Footwear Regular Shoe Right Footwear Regular Shoe Pain Scale: 0-10 Numeric Is Patient Pain Free? Yes Yes Yes - Nurse 1 - General Ulcer Measurement Start: 06/03/24 14:10 Freq: Status: Active Protocol: Activity Type Activity Date Activity User E-sign Co-sign Detail Recorded Client Recorded Date Recorded By Document 06/03/24 14:11 DL [id number] 06/03/24 14:19 DL Document 06/10/24 13:59 KW [id number] 06/10/24 14:06 KW Document 06/17/24 14:03 DL [id number] 06/17/24 14:14 DL 06/03/24 06/10/24 06/17/24 14:11 13:59 14:03 Wound Center Nurse 1 *#3 Brunilda Cleft/Sacral -Current Size (cm) - Length 0.2 -Current Size (cm) - Width 0.2 -Current Size (cm) - Depth 0.1 -Total Square Cm 0.04 -Photo Taken Yes -Exudate Amt Small -Wound Margin Distinct, Outline Attached -Granulation Amt Small (1-33%) -Granulation Quality [place] -Necrosis Amt Small (1-33%) -Necrotic Tissue Type Adherent Slough -Structure Exposed N/A -Texture (Santa-wound Skin Appearance) Scarring -Moisture (Santa-wound Skin Appearance) Maceration -Color (Santa-wound Skin Appearance) No Abnormality -Temperature (Santa-wound Skin No Abnormality Appearance) (Pt Warm) -Tenderness on Palpation (Santa-wound No Skin Appearance) -Ulcer Cleansing Rinsed/ Irrigated with Saline -Foul Odor after Cleansing No -Anesthetic Used 5% Lidocaine Gel #2 RT BUTTOCK -Current Size (cm) - Length 0.5 1 0 -Current Size (cm) - Width 0.4 0.3 0 -Current Size (cm) - Depth 0.1 0.1 0 -Total Square Cm 0.20 0.3 0 -Photo Taken Yes Yes -Exudate Amt Small Medium None Present -Exudate Type Serosanguineous -Wound Margin Distinct, Distinct, Flat & Intact Outline Outline Attached Attached -Granulation Amt Small (1-33%) Medium (34-66%) Large (67-100%) -Granulation Quality [place] Roderfield [place]field -Necrosis Amt None Present (0 Small (1-33%) None Present (0 %) %) -Necrotic Tissue Type Adherent Slough -Structure Exposed N/A N/A -Texture (Santa-wound Skin Appearance) Scarring Assessed Scarring -Moisture (Santa-wound Skin Appearance) No Abnormality Assessed No Abnormality -Color (Santa-wound Skin Appearance) Erythema Assessed, No Abnormality Erythema -Temperature (Santa-wound Skin No Abnormality No Abnormality No Abnormality Appearance) (Pt Warm) (Pt Warm) (Pt Warm) -Tenderness on Palpation (Santa-wound No No Skin Appearance) -Ulcer Cleansing Rinsed/ Rinsed/ Rinsed/ Irrigated with Irrigated with Irrigated with Saline Saline Saline -Foul Odor after Cleansing No No -Anesthetic Used 5% Lidocaine 5% Lidocaine Gel Gel #1 LT BUTTOCK -Current Size (cm) - Length 5.6 4.3 3.5 -Current Size (cm) - Width 0.5 1 1 -Current Size (cm) - Depth 0.1 0.1 0.1 -Total Square Cm 2.80 4.3 3.5 -Photo Taken Yes -Exudate Amt Small Medium Small -Exudate Type Serosanguineous Serosanguineous Serosanguineous -Wound Margin Distinct, Distinct, Distinct, Outline Outline Outline Attached Attached Attached -Granulation Amt Medium (34-66%) Small (1-33%) None Present (0 %) -Granulation Quality [place],Red Red -Necrosis Amt Medium (34-66%) Medium (34-66%) Large (67-100%) -Necrotic Tissue Type Adherent Slough Adherent Slough Adherent Slough -Structure Exposed N/A N/A -Texture (Santa-wound Skin Appearance) Scarring Assessed Scarring -Moisture (Santa-wound Skin Appearance) Maceration Assessed No Abnormality -Color (Santa-wound Skin Appearance) Erythema Assessed, No Abnormality Erythema -Temperature (Santa-wound Skin No Abnormality No Abnormality No Abnormality Appearance) (Pt Warm) (Pt Warm) (Pt Warm) -Tenderness on Palpation (Santa-wound No No Skin Appearance) -Ulcer Cleansing Rinsed/ Rinsed/ Soap and Water Irrigated with Irrigated with Saline Saline -Foul Odor after Cleansing No No No -Anesthetic Used 5% Lidocaine 5% Lidocaine 5% Lidocaine Gel Gel Gel WC - Nurse 2 - General Ulcer CM Notes Start: 06/03/24 14:10 Freq: Status: Active Protocol: Activity Type Activity Date Activity User E-sign Co-sign Detail Recorded Client Recorded Date Recorded By Document 06/03/24 14:39 GM [id number] 06/03/24 14:44 GM Document 06/10/24 14:23 GM [id number] 06/10/24 14:27 GM Edit Result 06/10/24 14:23 GM (1) [id number] 06/10/24 14:31 GM Document 06/17/24 15:03 GM [id number] 06/17/24 15:09 GM (1) #1 LT BUTTOCK - Clinical Debridement Subcutaneous => Epidermis / Dermis - Tissue Removed Subcutaneous => Epidermis - Debridement - Open, 1st 20sq cm => Yes - Debridement - Subq, 1st 20sq cm Yes => 06/03/24 06/10/24 06/17/24 14:39 14:23 15:03 Wound Center Nurse 2 *#3 Cleft/Sacral -Time 15:03 -Correct Patient Yes -Correct Side, Site, Position Yes -Correct Procedure Yes -Procedure Performed Yes -Type of Procedure Debridement -Clinical Debridement Subcutaneous -Tissue Removed Subcutaneous -Post Debridement (cm) - Length 1.0 -Post Debridement (cm) - Width 0.5 -Post Debridement (cm) - Depth 0.1 -Total Square (Post) (cm) 0.50 -Area of Debridement (cm) - Length 1.0 -Area of Debridement (cm) - Width 0.5 -Total Square (Area) (cm) 0.50 -Tunneling No -Undermining/Tunneling No -Circular Undermining No -Wound/Ulcer Outcome Not Healed -Ulcer Cleansing Rinsed/ Irrigated with Saline -Foul Odor after Cleansing No -Bioengineered Tissue No -Bleeding Controlled with Pressure -Treatment Response Procedure Tolerated Well -Offloading No -Debridement - Subq, 1st 20sq cm Yes #2 RT BUTTOCK -Time 14:39 14:24 15:03 -Correct Patient Yes Yes Yes -Correct Side, Site, Position Yes Yes Yes -Correct Procedure No No No -Procedure Performed No No No -Post Debridement (cm) - Length 0.3 -Post Debridement (cm) - Width 0.3 -Post Debridement (cm) - Depth 0.1 -Total Square (Post) (cm) 0.09 -Tunneling No No -Undermining/Tunneling No No -Circular Undermining No No -Wound/Ulcer Outcome Not Healed Healed- Healed- Epithelialized Epithelialized -Ulcer Cleansing Rinsed/ Not Cleansed Irrigated with Saline -Foul Odor after Cleansing No No No -Bioengineered Tissue No No No -Bleeding Controlled with NA NA -Offloading No #1 LT BUTTOCK -Time 14:40 14:26 15:03 -Correct Patient Yes Yes Yes -Correct Side, Site, Position Yes Yes Yes -Correct Procedure Yes Yes Yes -Procedure Performed Yes Yes Yes -Type of Procedure Debridement Debridement Debridement -Clinical Debridement Subcutaneous Epidermis / Subcutaneous Dermis -Tissue Removed Subcutaneous Epidermis Subcutaneous -Post Debridement (cm) - Length 3.5 4.1 3.0 -Post Debridement (cm) - Width 1.0 1.0 0.6 -Post Debridement (cm) - Depth 0.1 0.1 0.1 -Total Square (Post) (cm) 3.50 4.10 1.80 -Area of Debridement (cm) - Length 3.5 4.1 3.0 -Area of Debridement (cm) - Width 1.0 1.0 0.6 -Total Square (Area) (cm) 3.50 4.10 1.80 -Tunneling No No No -Undermining/Tunneling No No No -Circular Undermining No No No -Wound/Ulcer Outcome Not Healed Not Healed Not Healed -Ulcer Cleansing Rinsed/ Rinsed/ Rinsed/ Irrigated with Irrigated with Irrigated with Saline Saline Saline -Foul Odor after Cleansing No No No -Bioengineered Tissue No No No -Bleeding Controlled with Pressure Pressure Pressure -Treatment Response Procedure Procedure Procedure Tolerated Well Tolerated Well Tolerated Well -Offloading No No No -Debridement - Open, 1st 20sq cm Yes -Debridement - Subq, 1st 20sq cm Yes No Pain Scale: 0-10 Numeric Is Patient Pain Free? Yes Yes Yes - Nurse 3 - General Ulcer D/C NN Start: 06/03/24 14:10 Freq: Status: Active Protocol: Activity Type Activity Date Activity User E-sign Co-sign Detail Recorded Client Recorded Date Recorded By Document 06/03/24 14:54 BMF [id number] 06/03/24 14:55 BMF Document 06/17/24 15:14 ML [id number] 06/17/24 15:16 ML 06/03/24 06/17/24 14:54 15:14 Wound Care Center Nurse 3 *#3 Brunilda Cleft/Sacral -Primary Dressing Applied Silicone Border Foam 6x6 -Other Dressing bacitracin -Silicone Border Foam 6x6 1 #2 RT BUTTOCK -Ulcer Cleansing Rinsed/ Irrigated with Saline -Foul Odor after Cleansing No -Primary Dressing Applied Promogran [place] Matter, Silicone Border Foam 4x4 -Promogran [place] Matter 1 -Silicone Border Foam 4x4 1 #1 LT BUTTOCK -Ulcer Cleansing Rinsed/ Rinsed/ Irrigated with Irrigated with Saline Saline -Foul Odor after Cleansing No -Primary Dressing Applied Promogran Silicone Border [place] Matter, Foam 6x6 Silicone Border Foam 4x4 -Other Dressing bacitracin -Promogran [place] Matter 0 -Silicone Border Foam 4x4 1 -Silicone Border Foam 6x6 1 Treatment Response Procedure Tolerated Well Pain Scale: 0-10 Numeric Is Patient Pain Free? Yes Yes - Visit Discharge Discharge Condition Stable Ambulatory Status Ambulatory Transportation Private Auto Additional Wound Wound debrided: Sacral Laterality: Not Applicable Type of Debridement: Excisional debridement Anesthesia Used: 5% Lidocaine Gel Depth: Down to and including healthy tissue Percentage of wound debrided: 100 Instrument Used: 5mm curette Tissue Removed: slough, devitalized tissue Severity: Limited To Skin Breakdown Amount of bleeding with debridement: Mild Bleeding Controlled with: Pressure Patient tolerated procedure: Patient tolerated procedure well Assessment/Plan Assessment/Plan (1) Stage II pressure ulcer of left buttock: CODE(S): L89.322 - Pressure ulcer of left buttock, stage 2 (2) Candidal intertrigo: CODE(S): B37.2 - Candidiasis of skin and nail (3) Pressure ulcer of sacral region, stage 2: CODE(S): L89.152 - Pressure ulcer of sacral region, stage 2 PLAN: Plan Debridement was performed as above and she tolerated it well. New pressure ulceration in the sacral area; reinforced the importance of offloading measures. She will have to miss next week's visit. Will plan to continue topical gentamicin x 2 more weeks or until she runs out. For wound care: (1) Cleanse the area with antibacterial soap and water, pat to dry (2) Apply Gentamicin ointment (3) Cover with foam-border dressing such as [place]-SAP or dry gauze dressing (4) Change three times daily or more often as needed if dressing becomes soaked or soiled. I encourage continued offloading measures including changing position/standing up at least every half hour and continued to use extra foam padding/donut in her usual chair. No signs/symptoms of infection on exam today. She will return in 2 weeks.
--- NOTE | 2024-06-18 10:57 | WC ---
PHOTO 06/17/24 LEFT BUTTOCK
--- NOTE | 2024-06-18 10:57 | WC ---
PHOTO 06/17/24 RIGHT BUTTOCKS
--- NOTE | 2024-06-18 10:58 | WC ---
PHOTO 06/17/24 SACRAL
== END 2024-06-30 23:59 | disposition home or self-care (01) ==
LOC: WC 14:00
PROVIDERS: PCP Internal Medicine; Referring Provider Internal Medicine; Visit Provider Physician Assistant
DX: L89.312 Pressure ulcer of right buttock, stage 2 (principal); L89.322 Pressure ulcer of left buttock, stage 2; L89.152 Pressure ulcer of sacral region, stage 2; E11.9 Type 2 diabetes mellitus without complications; B37.2 Candidiasis of skin and nail; Z79.84 Long term (current) use of oral hypoglycemic drugs; Z79.890 Hormone replacement therapy; Z79.899 Other long term (current) drug therapy
CPT/HCPCS: 11042; 87070; 87075; 87077; 87186; 87205; 97597

== ENCOUNTER 2024-07-15 14:15 | Outpatient (RCR) | payer MEDICARE, SELFPAY ==
[2024-07-01 00:37] VITALS: BP 145/87; PULSE 98; RESP 16; TEMP 36.6; BMI 32.4
[2024-07-01 14:13] VITALS: RESP 18; BMI 32.4
--- NOTE | 2024-07-01 15:32 | PN.PCM_ITS ---
History of Present Illness Date of Service: 07/01/24 Chief Complaint: Bilateral buttock pressure wounds History of Wound: Nhi Miranda is a 69 y/o female who presents to the wound center today for evaluation and management of bilateral buttock pressure ulcerations as referred by her PCP. She reports she first noticed these wounds >6 weeks ago, she was having pain in the area. She has been following with her PCP who has been having her cover the wounds with foam border dressing, had her get a foam pad/donut for her chair, and advised her to stand more frequently. The wounds have been improving, but progress has been slow. She has been treated a couple times for associated cellulitis, not currently on any antibiotics. She admits she spends a lot of time sitting her her recliner watching TV/News. She does not have any specific mobility limitations, she is ambulatory without the need for any assistive devices. She has never had wounds like this before. She is diabetic but with very good control, last A1c 6.6. She does not smoke. She does not have any autoimmune disease and takes no immunosuppressive medications. She is not on anticoagulation. She reports that she has been standing every 15 minutes at home. She uses the donut all the time on her chair. She does sleep in a bed. Subjective Subjective Rosy has done well since her last visit. They have been applying the gentamicin ointment and see significant improvement in the wound itself; some dermatitis remains. Her pain and the drainage is also significantly improved. Objective Data Objective Data Vital Signs: Vital Signs Temp Pulse Resp BP O2 Del Method 97.9 F 98 18 145/87 H Room Air 07/01/24 00:37 07/01/24 00:37 07/01/24 14:13 07/01/24 00:37 07/01/24 14:13 Oxygen Delivery Method Room Air Weight: 189 lb Body Mass Index (BMI) 32.4 Charges/Coding Visit Charges Office Visits / Consults: 81724 OV L3 Est 20min Physical Exam Const alert, oriented x3, no apparent distress and healthy appearing General Appearance: cooperative and comfortable HEENT normocephalic, hearing grossly normal bilaterally, external ears normal and external nose normal Eyes General Eye: normal appearance of both eyes Neck General: normal visual inspection and trachea midline Resp normal respiratory effort Effort and Inspection: able to speak in complete sentences; Negative for respiratory distress, labored, grunting or audible wheezes Cardio regular rate and regular rhythm Extremity no clubbing, cyanosis or edema Skin Wounds: wounds noted Wound Narrative: L buttock and brunilda cleft ulcerations are fully epithelialized at this time. There is residual intertriginous erythematous patches with some satellite papules consistent with candidal intertrigo Neuro oriented x3, moves all extremities and no focal motor deficits Speech: speech normal Psych mental status grossly normal Appearance: grossly normal Attitude: calm and engaged Activity / Motor Behavior: appropriate eye contact Speech: normal speech Debridement Note Debridement Note No debridement was completed: No debridement was completed today Post-Debridement Measurements and Additional Note: Post-Debridement Measurements/Treatment - Nurse 1 - General Ulcer Assessment Start: 07/01/24 14:13 Freq: Status: Active Protocol: AFRA Activity Type Activity Date Activity User E-sign Co-sign Detail Recorded Client Recorded Date Recorded By Document 07/01/24 14:13 KW [id number] 07/01/24 14:18 07/01/24 14:13 WC - Today's Visit Information Type of service Follow-up Visit (Physician/CLIENT SPECIALIST ) Arrival Mode Ambulatory Accompanied by Patient Identification Verified (Name & Yes ) Height and Weight Body Mass Index (BMI) 32.4 BMI Classification Obese Vital Signs Respiratory Rate (12-18) 18 Respiratory rate source Observation Oxygen Delivery Method Room Air History Since Last Visit- (Skip if this is Patient's initial visit) Have you changed medications since your No last visit? Any new allergies or adverse reactions No Had a fall/change in ADL's that may No increase risk of falls Signs or symptoms of abuse and/or No neglect since last visit Have you been in the hospital since your No last visit? Has dressing in place as prescribed Yes Has compression in place as prescribed N/A Has offloadiing in place as prescribed N/A Experienced any changes in pain level or No management Left Footwear Regular Shoe Right Footwear Regular Shoe Pain Scale: 0-10 Numeric Is Patient Pain Free? Yes - Nurse 1 - General Ulcer Measurement Start: 07/01/24 14:13 Freq: Status: Active Protocol: Activity Type Activity Date Activity User E-sign Co-sign Detail Recorded Client Recorded Date Recorded By Document 07/01/24 14:13 [facility] [id number] 07/01/24 14:18 KW 07/01/24 14:13 Wound Center Nurse 1 *#3 Brunilda Cleft/Sacral -Current Size (cm) - Length 0.1 -Current Size (cm) - Width 0.1 -Current Size (cm) - Depth 0 -Total Square Cm 0.01 -Exudate Amt None Present -Texture (Santa-wound Skin Appearance) Assessed -Moisture (Santa-wound Skin Appearance) Assessed -Color (Santa-wound Skin Appearance) Assessed -Temperature (Santa-wound Skin No Abnormality Appearance) (Pt Warm) -Tenderness on Palpation (Santa-wound No Skin Appearance) -Ulcer Cleansing Soap and Water -Foul Odor after Cleansing No -Anesthetic Used 5% Lidocaine Gel #2 RT BUTTOCK -Current Size (cm) - Length 0.1 -Current Size (cm) - Width 0.1 -Current Size (cm) - Depth 0 -Total Square Cm 0.01 -Texture (Santa-wound Skin Appearance) Assessed -Moisture (Santa-wound Skin Appearance) Assessed -Color (Santa-wound Skin Appearance) Assessed, Erythema -Temperature (Santa-wound Skin No Abnormality Appearance) (Pt Warm) -Tenderness on Palpation (Santa-wound No Skin Appearance) -Ulcer Cleansing Soap and Water -Foul Odor after Cleansing No -Anesthetic Used 5% Lidocaine Gel #1 LT BUTTOCK -Exudate Amt None Present -Texture (Santa-wound Skin Appearance) Assessed -Moisture (Santa-wound Skin Appearance) Assessed -Color (Santa-wound Skin Appearance) Assessed, Erythema -Temperature (Santa-wound Skin No Abnormality Appearance) (Pt Warm) -Tenderness on Palpation (Santa-wound No Skin Appearance) -Ulcer Cleansing Soap and Water -Foul Odor after Cleansing No -Anesthetic Used 5% Lidocaine Gel WC - Nurse 2 - General Ulcer CM Notes Start: 07/01/24 14:13 Freq: Status: Active Protocol: Activity Type Activity Date Activity User E-sign Co-sign Detail Recorded Client Recorded Date Recorded By Document 07/01/24 14:28 [id number] 07/01/24 14:31 07/01/24 14:28 Wound Center Nurse 2 *#3 Cleft/Sacral -Time 14:29 -Correct Patient Yes -Correct Side, Site, Position Yes -Correct Procedure No -Procedure Performed No -Tunneling No -Undermining/Tunneling No -Circular Undermining No -Wound/Ulcer Outcome Healed- Epithelialized -Ulcer Cleansing Not Cleansed -Foul Odor after Cleansing No -Bioengineered Tissue No -Bleeding Controlled with NA #2 RT BUTTOCK -Time 14:30 -Correct Patient Yes -Correct Side, Site, Position Yes -Correct Procedure No -Procedure Performed No -Tunneling No -Undermining/Tunneling No -Circular Undermining No -Wound/Ulcer Outcome Healed- Epithelialized -Ulcer Cleansing Not Cleansed -Foul Odor after Cleansing No -Bioengineered Tissue No -Bleeding Controlled with NA #1 LT BUTTOCK -Time 14:30 -Correct Patient Yes -Correct Side, Site, Position Yes -Correct Procedure No -Procedure Performed No -Tunneling No -Undermining/Tunneling No -Circular Undermining No -Wound/Ulcer Outcome Healed- Epithelialized -Ulcer Cleansing Not Cleansed -Foul Odor after Cleansing No -Bioengineered Tissue No -Bleeding Controlled with NA -Offloading No Pain Scale: 0-10 Numeric Is Patient Pain Free? Yes - Nurse 3 - General Ulcer D/C NN Start: 07/01/24 14:13 Freq: Status: Active Protocol: Activity Type Activity Date Activity User E-sign Co-sign Detail Recorded Client Recorded Date Recorded By Document 07/01/24 14:39 DL [id number] 07/01/24 14:41 DL 07/01/24 14:39 Wound Care Center Nurse 3 *#3 Brunilda Cleft/Sacral -Ulcer Cleansing Rinsed/ Irrigated with Saline -Primary Dressing Applied Sacral Foam Border -Sacral Foam Border 1 #2 RT BUTTOCK -Ulcer Cleansing Rinsed/ Irrigated with Saline -Other Dressing sacral border #1 LT BUTTOCK -Ulcer Cleansing Rinsed/ Irrigated with Saline -Other Dressing sacral border -Wound Comment(s) Pt to resume barrier cream at home. Treatment Response Procedure Tolerated Well Pain Scale: 0-10 Numeric Is Patient Pain Free? Yes WC - Visit Discharge Discharge Condition Stable Ambulatory Status Ambulatory Transportation Private Auto Assessment/Plan Assessment/Plan (1) Candidal intertrigo: CODE(S): B37.2 - Candidiasis of skin and nail PLAN: Plan Her wounds are epithelialized today, there are no residual open areas. She does have dermatitic findings consistent with candidal intertrigo. Will have her discontinue gentamicin ointment at this time and return to applying clotrimazole cream; if this is ineffective will plan for combined clotrimazole plus steroid (lotrisone). For wound care: (1) Cleanse the area with antibacterial soap and water, pat to dry (2) Apply Clotrimazole cream and allow this to absorb for a few minutes (3) Cover with zinc-based barrier cream (4) continue to cover the area of delicate newly healed skin with foam-border dressing (4) Change three times daily or more often as needed if dressing becomes soaked or soiled. Once she runs out of her current supply of foam border dressings can discontinue applying them as long as she has not had recurrent pressure ulceration develop in the interval. I encourage continued offloading measures including changing position/standing up at least every half hour and continued to use extra foam padding/donut in her usual chair. She will return in 2 weeks.
[2024-07-15 14:16] VITALS: BP 144/88; PULSE 96; RESP 16; TEMP 35.9; BMI 32.4
--- NOTE | 2024-07-15 14:38 | PN.PCM_ITS ---
History of Present Illness Date of Service: 07/15/24 Chief Complaint: Bilateral buttock pressure wounds History of Wound: Nhi Miranda is a 69 y/o female who presents to the wound center today for evaluation and management of bilateral buttock pressure ulcerations as referred by her PCP. She reports she first noticed these wounds >6 weeks ago, she was having pain in the area. She has been following with her PCP who has been having her cover the wounds with foam border dressing, had her get a foam pad/donut for her chair, and advised her to stand more frequently. The wounds have been improving, but progress has been slow. She has been treated a couple times for associated cellulitis, not currently on any antibiotics. She admits she spends a lot of time sitting her her recliner watching TV/News. She does not have any specific mobility limitations, she is ambulatory without the need for any assistive devices. She has never had wounds like this before. She is diabetic but with very good control, last A1c 6.6. She does not smoke. She does not have any autoimmune disease and takes no immunosuppressive medications. She is not on anticoagulation. She reports that she has been standing every 15 minutes at home. She uses the donut all the time on her chair. She does sleep in a bed. Subjective Subjective She has done well the last two weeks. No new pain, drainage, itching, or other symptoms. They believe that it is healed today. Objective Data Objective Data Vital Signs: Vital Signs Temp Pulse Resp BP O2 Del Method 96.7 F L 96 16 144/88 H Room Air 07/15/24 14:16 07/15/24 14:16 07/15/24 14:16 07/15/24 14:16 07/15/24 14:16 Oxygen Delivery Method Room Air Weight: 189 lb Body Mass Index (BMI) 32.4 Charges/Coding Visit Charges Office Visits / Consults: 83055 OV L2 Est 10min Physical Exam Const alert, oriented x3, no apparent distress and healthy appearing General Appearance: cooperative and comfortable HEENT normocephalic, hearing grossly normal bilaterally, external ears normal and external nose normal Eyes General Eye: normal appearance of both eyes Neck General: normal visual inspection and trachea midline Resp normal respiratory effort Effort and Inspection: able to speak in complete sentences; Negative for respiratory distress, labored, grunting or audible wheezes Cardio regular rate and regular rhythm Extremity no clubbing, cyanosis or edema Skin Wounds: wounds noted Wound Narrative: No ulcerations/skin breakdown on exam today. Resolved prior intertrigo. Neuro oriented x3, moves all extremities and no focal motor deficits Speech: speech normal Psych mental status grossly normal Appearance: grossly normal Attitude: calm and engaged Activity / Motor Behavior: appropriate eye contact Speech: normal speech Debridement Note Debridement Note No debridement was completed: No debridement was completed today Post-Debridement Measurements and Additional Note: Post-Debridement Measurements/Treatment - Nurse 1 - General Ulcer Assessment Start: 07/01/24 14:13 Freq: Status: Active Protocol: [email or web address] Activity Type Activity Date Activity User E-sign Co-sign Detail Recorded Client Recorded Date Recorded By Document 07/01/24 14:13 KW [id number] 07/01/24 14:18 KW Document 07/15/24 14:16 KW [id number] 07/15/24 14:23 KW 07/01/24 07/15/24 14:13 14:16 - Today's Visit Information Type of service Follow-up Visit Follow-up Visit (Physician/SNUFF GRINDER AND SCREENER (Physician/SNUFF GRINDER AND SCREENER ) ) Arrival Mode Ambulatory Ambulatory Accompanied by Patient Identification Verified (Name & Yes Yes ) Height and Weight Body Mass Index (BMI) 32.4 32.4 BMI Classification Obese Obese Vital Signs Temperature (97.8 F-99.1 F) 96.7 F L Temperature Source Temporal Pulse Rate (60-100) 96 Pulse Location Monitor Respiratory Rate (12-18) 18 16 Respiratory rate source Observation Observation Oxygen Delivery Method Room Air Room Air Blood Pressure (90/60-120/80) 144/88 H Blood Pressure Mean (mm Hg) 106 Source Monitor Position Sitting Blood Pressure Location Left Forearm History Since Last Visit- (Skip if this is Patient's initial visit) Have you changed medications since your No No last visit? Any new allergies or adverse reactions No No Had a fall/change in ADL's that may No No increase risk of falls Signs or symptoms of abuse and/or No No neglect since last visit Have you been in the hospital since your No No last visit? Has dressing in place as prescribed Yes Yes Has compression in place as prescribed N/A N/A Has offloadiing in place as prescribed N/A N/A Experienced any changes in pain level or No No management Left Footwear Regular Shoe Regular Shoe Right Footwear Regular Shoe Regular Shoe Pain Scale: 0-10 Numeric Is Patient Pain Free? Yes Yes WC - Nurse 1 - General Ulcer Measurement Start: 07/01/24 14:13 Freq: Status: Active Protocol: Activity Type Activity Date Activity User E-sign Co-sign Detail Recorded Client Recorded Date Recorded By Document 07/01/24 14:13 KW [id number] 07/01/24 14:18 KW Document 07/15/24 14:16 KW [id number] 07/15/24 14:23 KW 07/01/24 07/15/24 14:13 14:16 Wound Center Nurse 1 *#3 Cleft/Sacral -Current Size (cm) - Length 0.1 0.1 -Current Size (cm) - Width 0.1 0.1 -Current Size (cm) - Depth 0 0 -Total Square Cm 0.01 0.01 -Exudate Amt None Present -Texture (Santa-wound Skin Appearance) Assessed -Moisture (Santa-wound Skin Appearance) Assessed -Color (Santa-wound Skin Appearance) Assessed -Temperature (Santa-wound Skin No Abnormality Appearance) (Pt Warm) -Tenderness on Palpation (Santa-wound No Skin Appearance) -Ulcer Cleansing Soap and Water -Foul Odor after Cleansing No -Anesthetic Used 5% Lidocaine Gel #2 RT BUTTOCK -Current Size (cm) - Length 0.1 0.1 -Current Size (cm) - Width 0.1 0.1 -Current Size (cm) - Depth 0 0 -Total Square Cm 0.01 0.01 -Date of Last Picture (Recall this 07/15/24 field) -Texture (Santa-wound Skin Appearance) Assessed -Moisture (Santa-wound Skin Appearance) Assessed -Color (Santa-wound Skin Appearance) Assessed, Erythema -Temperature (Santa-wound Skin No Abnormality Appearance) (Pt Warm) -Tenderness on Palpation (Santa-wound No Skin Appearance) -Ulcer Cleansing Soap and Water -Foul Odor after Cleansing No -Anesthetic Used 5% Lidocaine Gel #1 LT BUTTOCK -Current Size (cm) - Length 0.1 -Current Size (cm) - Width 0.1 -Current Size (cm) - Depth 0 -Total Square Cm 0.01 -Date of Last Picture (Recall this 07/15/24 field) -Exudate Amt None Present -Texture (Santa-wound Skin Appearance) Assessed -Moisture (Santa-wound Skin Appearance) Assessed -Color (Santa-wound Skin Appearance) Assessed, Erythema -Temperature (Santa-wound Skin No Abnormality Appearance) (Pt Warm) -Tenderness on Palpation (Santa-wound No Skin Appearance) -Ulcer Cleansing Soap and Water -Foul Odor after Cleansing No -Anesthetic Used 5% Lidocaine 5% Lidocaine Gel Gel WC - Nurse 2 - General Ulcer CM Notes Start: 07/01/24 14:13 Freq: Status: Active Protocol: Activity Type Activity Date Activity User E-sign Co-sign Detail Recorded Client Recorded Date Recorded By Document 07/01/24 14:28 [id number] 07/01/24 14:31 Document 07/15/24 14:33 [id number] 07/15/24 14:35 07/01/24 07/15/24 14:28 14:33 Wound Center Nurse 2 *#3 Brunilda Cleft/Sacral -Time 14:29 14:33 -Correct Patient Yes Yes -Correct Side, Site, Position Yes Yes -Correct Procedure No No -Procedure Performed No No -Tunneling No No -Undermining/Tunneling No No -Circular Undermining No No -Wound/Ulcer Outcome Healed- Healed- Epithelialized Epithelialized -Ulcer Cleansing Not Cleansed -Foul Odor after Cleansing No No -Bioengineered Tissue No No -Bleeding Controlled with NA NA -Offloading No #2 RT BUTTOCK -Time 14:30 14:34 -Correct Patient Yes Yes -Correct Side, Site, Position Yes Yes -Correct Procedure No No -Procedure Performed No No -Tunneling No No -Undermining/Tunneling No No -Circular Undermining No No -Wound/Ulcer Outcome Healed- Not Healed Epithelialized -Ulcer Cleansing Not Cleansed Not Cleansed -Foul Odor after Cleansing No No -Bioengineered Tissue No No -Bleeding Controlled with NA NA #1 LT BUTTOCK -Time 14:30 14:34 -Correct Patient Yes Yes -Correct Side, Site, Position Yes Yes -Correct Procedure No No -Procedure Performed No No -Tunneling No No -Undermining/Tunneling No No -Circular Undermining No No -Wound/Ulcer Outcome Healed- Healed- Epithelialized Epithelialized -Ulcer Cleansing Not Cleansed -Foul Odor after Cleansing No No -Bioengineered Tissue No -Bleeding Controlled with NA NA -Offloading No No Pain Scale: 0-10 Numeric Is Patient Pain Free? Yes Yes WC - Nurse 3 - General Ulcer D/C NN Start: 07/01/24 14:13 Freq: Status: Active Protocol: Activity Type Activity Date Activity User E-sign Co-sign Detail Recorded Client Recorded Date Recorded By Document 07/01/24 14:39 DL [id number] 07/01/24 14:41 DL Document 07/15/24 14:35 [id number] 07/15/24 14:36 07/01/24 07/15/24 14:39 14:35 Wound Care Center Nurse 3 *#3 Brunilda Cleft/Sacral -Ulcer Cleansing Rinsed/ Not Cleansed Irrigated with Saline -Foul Odor after Cleansing No -Primary Dressing Applied Sacral Foam Silicone Border Border Foam 6x6 -Sacral Foam Border 1 -Silicone Border Foam 6x6 1 #2 RT BUTTOCK -Ulcer Cleansing Rinsed/ Irrigated with Saline -Other Dressing sacral border #1 LT BUTTOCK -Ulcer Cleansing Rinsed/ Irrigated with Saline -Other Dressing sacral border -Wound Comment(s) Pt to resume barrier cream at home. Treatment Response Procedure Tolerated Well Pain Scale: 0-10 Numeric Is Patient Pain Free? Yes Yes WC - Visit Discharge Discharge Condition Stable Stable Ambulatory Status Ambulatory Walker Transportation Private Auto Private Auto Clinical Summary of Care Provided Yes Assessment/Plan Assessment/Plan (1) Candidal intertrigo: CODE(S): B37.2 - Candidiasis of skin and nail PLAN: Plan Her wounds are epithelialized today, there are no residual open areas. Prior intertrigo is resolved. I encourage continued application of barrier cream for an additional 7-10 days then as needed if they notice any early skin breakdown/maceration. I encourage continued offloading measures including changing position/standing up at least every half hour and continued to use extra foam padding/donut in her usual chair to prevent wound recurrence. She is discharged from the wound center today and will return on an as-needed basis.
--- NOTE | 2024-07-16 09:41 | WC ---
PHOTO 07/15/24 SADE BUTTOCKS
== END 2024-07-29 14:44 | disposition home or self-care (01) ==
LOC: WC 14:15
PROVIDERS: PCP Internal Medicine; Referring Provider Internal Medicine; Visit Provider Physician Assistant
DX: L89.319 Pressure ulcer of right buttock, unspecified stage (principal); E11.9 Type 2 diabetes mellitus without complications; L89.329 Pressure ulcer of left buttock, unspecified stage; B37.2 Candidiasis of skin and nail; Z79.899 Other long term (current) drug therapy
CPT/HCPCS: 99213; G0463